=== PATIENT | male | born 1955 | race Caucasian/White ===

== ENCOUNTER 2017-06-29 14:31 | Emergency (ER) | payer MEDICARE ==
[2017-06-29 15:02] VITALS: BP 110/71
[2017-06-29] MEDS ORDERED: HYDROcodone/ACETAMIN 5-325 MG* 1 TAB PO ONE (15:31)
--- NOTE | 2017-06-29 15:57 | RAD ---
INDICATION: Right shoulder injury. TECHNIQUE: 4 views of the right shoulder were obtained. FINDINGS: The bones are in normal alignment. No fracture is seen. 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 IMPRESSION: NO EVIDENCE OF FRACTURE.
--- NOTE | 2017-06-29 15:59 | RAD ---
Indication: LEFT ankle and foot pain post fall from ladder. Comparison: No relevant prior exams available on the [facility] PACS for comparison. Technique: AP, lateral, and oblique views LEFT foot. AP, lateral, and mortise views LEFT ankle. Report: Grossly nondisplaced avulsion fracture with intra-articular extension at the tuberosity of the base of the fifth metatarsal. Tiny ossific fragment visualized between the talus and lateral malleolus on the AP view may reflect traumatic anterior talofibular ligament avulsion. Normal articular alignment throughout. Severe soft tissue swelling over the anterior lateral aspects of the ankle. IMPRESSION: 1. Grossly nondisplaced avulsion fracture at the tuberosity of the base of the fifth metatarsal. 2. Tiny ossific fragment visualized between the talus and lateral malleolus on the AP view may reflect traumatic anterior talofibular ligament avulsion. The ankle mortise remains congruent.
--- NOTE | 2017-06-29 16:00 | RAD ---
Indication: LEFT ankle and foot pain post fall from ladder. Comparison: No relevant prior exams available on the [facility] PACS for comparison. Technique: AP, lateral, and oblique views LEFT foot. AP, lateral, and mortise views LEFT ankle. Report: Grossly nondisplaced avulsion fracture with intra-articular extension at the tuberosity of the base of the fifth metatarsal. Tiny ossific fragment visualized between the talus and lateral malleolus on the AP view may reflect traumatic anterior talofibular ligament avulsion. Normal articular alignment throughout. Severe soft tissue swelling over the anterior lateral aspects of the ankle. IMPRESSION: 1. Grossly nondisplaced avulsion fracture at the tuberosity of the base of the fifth metatarsal. 2. Tiny ossific fragment visualized between the talus and lateral malleolus on the AP view may reflect traumatic anterior talofibular ligament avulsion. The ankle mortise remains congruent.
--- NOTE | 2017-06-29 16:16 | UC ---
Lower Extremity/Ankle HPI - HPI Summary HPI Summary: slid of the roof of his shed landing on his left foot falling on to right shoulder - History of Current Complaint Chief Complaint: UCLowerExtremity Stated Complaint: ANKLE INJURY Time Seen by Provider: 06/29/17 15:14 Hx Obtained From: Patient Onset/Duration: Sudden Onset, Still Present Severity Initially: Moderate Severity Currently: Moderate Pain Intensity: 7 Pain Scale Used: 0-10 Numeric Aggravating Factor(s): Standing, Ambulation Alleviating Factor(s): Rest, Elevation Able to Bear Weight: No - Allergies/Home Medications Allergies/Adverse Reactions: Allergies Allergy/AdvReac Type Severity Reaction Status Date / Time No Known Allergies Allergy Verified 06/29/17 15:02 PMH/Surg Hx/FS Hx/Imm Hx Previously Healthy: No Endocrine History: Dyslipidemia Cardiovascular History: Cardiac Disease - Surgical History Surgical History: Yes Surgery Procedure, Year, and Place: CARDIAC BYPASS MAY 2003 - BYPASSES & REPAIR OF MITRAL VALVE; TONSILS 1964 - Family History Known Family History: Positive: None - Social History Occupation: Disabled Lives: With Family Alcohol Use: Occasionally Substance Use Type: Marijuana Substance Use Comment - Amount & Last Used: 07/23/14 Smoking Status (MU): Former Smoker Review of Systems Constitutional: Negative Skin: Negative Eyes: Negative ENT: Negative Respiratory: Negative Cardiovascular: Negative Gastrointestinal: Negative Genitourinary: Negative Motor: Negative Neurovascular: Negative Musculoskeletal: Negative, Arthralgia - left ankle and left 5th MT, Decreased ROM - left ankle, Edema Neurological: Negative Psychological: Negative Is Patient Immunocompromised?: No All Other Systems Reviewed And Are Negative: Yes Physical Exam Triage Information Reviewed: Yes Appearance: Well-Appearing, Well-Nourished, Pain Distress - mild Vital Signs: Initial Vital Signs Temp 99.6 F 06/29/17 14:58 Pulse 79 06/29/17 14:58 Resp 18 06/29/17 14:58 BP 110/71 06/29/17 14:58 Pulse Ox 99 06/29/17 14:58 Vital Signs Reviewed: Yes Eye Exam: Normal Eyes: Positive: Conjunctiva Clear ENT Exam: Normal ENT: Positive: Normal ENT inspection, Hearing grossly normal, TMs normal. Negative: Nasal congestion, Nasal drainage, Trismus, Muffled/hoarse voice Dental Exam: Normal Neck exam: Normal Neck: Positive: Supple, Nontender, No Lymphadenopathy Respiratory Exam: Normal Respiratory: Positive: Chest non-tender, No respiratory distress, No accessory muscle use Cardiovascular Exam: Normal Cardiovascular: Positive: RRR, Pulses Normal, Brisk Capillary Refill Musculoskeletal Exam: Other Musculoskeletal: Positive: Strength Limited @ - left ankle, ROM Limited @ - ankle, Edema @ - left lateral ankle and foot, Other: - n/m/c intact distally in left foot Neurological Exam: Normal Neurological: Positive: Alert, Muscle Tone Normal Psychological Exam: Normal Skin Exam: Normal Diagnostics - Radiology No standard instances Xray Interpretation: Positive (See Comments) - 1. non displaced proximal 5th mT fracture 2. Left lateral ankle avulsion fracture 3.no evidence of fraxcture right shoulder Radiology Interpretation Completed By: ED Physician, Radiologist Lower Extremity Course/Dx - Course Course Of Treatment: non weight beaing, pain med, rice, posterior splint follow with ortho Sunday - Differential Dx/Diagnosis Differential Diagnosis/HQI/PQRI: Contusion, Dislocation, Fracture (Closed), Sprain Provider Diagnoses: left non displaced proximal 5th MT fracture, avulsion fx left lateral ankle, right shoulder contusion Discharge - Discharge Plan Condition: Stable Disposition: HOME Prescriptions: Ibuprofen TAB* [Motrin TAB* 600 MG] 600 mg PO Q6H PRN #40 tab PRN Reason: pain oxyCODONE/Acetamin 5/325 MG* [Percocet 5/325 TAB*] 1 tab PO Q4H PRN #20 tab MDD 5 PRN Reason: pain Patient Education Materials: Crutch Instructions (ED), Foot Fracture in Adults (ED), RICE Therapy (ED), Avulsion Fracture (ED) Referrals: Antony Flood MD [Medical Doctor] - 07/02/17 Marco Antonio Chavez MD [Primary Care Provider] - Additional Instructions: remain non weight bearing until evaluated by orthopedic MD
== END 2017-06-29 17:10 | disposition home or self-care (01) ==
LOC: UCEAST 14:31
DX: S92.355A Nondisplaced fracture of fifth metatarsal bone, left foot, initial encounter for closed fracture (principal); S82.892A Other fracture of left lower leg, initial encounter for closed fracture; S40.011A Contusion of right shoulder, initial encounter; Z87.891 Personal history of nicotine dependence; W20.8XXA Other cause of strike by thrown, projected or falling object, initial encounter; Y92.9 Unspecified place or not applicable; E78.5 Hyperlipidemia, unspecified
CPT/HCPCS: 99213; G0463

== ENCOUNTER → 2018-11-08 12:20 | Emergency (ER) | payer MEDICARE ==
[~2018-11-08 12:20] MED LIST: Ondansetron ODT TAB* 4 MG SL ONE
--- OUTSIDE RECORDS SUMMARY | 2018-11-08 12:43 | XMS REPORT | Continuity of Care Document ---
:1955 External Reference #:[id number] Author Name JackjvJumana Leah Care Team Providers Name Role Phone Marco Antonio Chavez III, MD Primary Care Physician Unavailable Payers Type Date Identification Numbers Payment Provider Subscriber Expires: 2014 Policy Number: [id number] Medicare Jamarcus Miguel PayID: [id number] [address] [place] [address] Effective: 2014 Policy Number: [id number] [facility] Jamarcus Miguel Expires: 2014 PayID: [id number] [address] [place] [address] Effective: 2013 Policy Number: [employer] Jamarcus Miguel [id number] [employer] Expires: 2014 PayID: [id number] [address] [place] [address] Effective: 2011 Policy Number: [id number] [facility] Ppkiesha Miguel Expires: 2013 Group Number: [id number] PO Box Group Name: [place] [address] PayID: [id number] Policy Number: [id number] Medicare Blue o Jamarcus Miguel Group Number: [id number] [address] PayID: [id number] [address] [address] Advance Directives Description No Information Available Problems Date Description Provider Status Onset: 07/26/2011 Restrictive cardiomyopathy secondary Jacque Clemons to cornelius Castillo Onset: 07/26/2011 Coronary arteriosclerosis Jacque Clemons M.D. Onset: 07/26/2011 Aortocoronary Bypass Postsurgical Jacque Clemons M.D. Onset: 07/26/2011 Hyperlipidemia Jacque Clemons M.D. Onset: 07/26/2011 Benign essential hypertension Jacque Clemons M.D. Onset: 07/26/2011 Amnesia Keith Curry M.D. Active Onset: 07/26/2011 Diplopia Keith Curry M.D. Active Onset: 07/26/2011 Gallbladder calculus with acute Keith Curry M.D. Active cholecystitis and no obstruction Onset: 08/08/2011 Supraventricular premature beats Jacque Clemons M.D. Onset: 08/08/2011 Premature beats Jacque Clemons M.D. Onset: 08/21/2011 Disorder of lumbar disc Keith Curry M.D. Active Onset: 10/03/2011 Obstructive sleep apnea syndrome Keith Curry M.D. Active Onset: 02/09/2012 Electrocardiogram abnormal Jacque Clemons M.D. Onset: 02/21/2012 Chronic ischemic heart disease Keith Curry M.D. Active Onset: 02/21/2012 Cervical disc disorder Keith Curry M.D. Active Onset: 10/23/2012 Mitral valve disorder Jacque Clemons M.D. Onset: 04/08/2015 Low back pain Marco Antonio Chavez M.D. Active Onset: 05/20/2015 Brachial plexus disorder Hammad Avila M.D. Active Onset: 07/22/2015 Essential hypertension Jacque Clemons M.D. Onset: 07/22/2015 History of coronary artery bypass Jacque Clemons grafting Anna Onset: 10/11/2016 Pure hypercholesterolemia Marco Antonio Chavez M.D. Active Family History Date Family Member(s) Problem(s) Comments General Coronary Artery Disease (CAD) Father due to Cancer, Colon () Father due to Cancer, Prostate () Father due to Diabetes () Father due to A-Fibrillation () Mother due to OR () - mid 70's and 60's Mother due to cabg x3 () Mother due to hyperlipidemia () Mother due to Cancer, Breast () Mother due to thyroid disease () First Son Cardiomyopathy First Son pacemaker First Son Ataxia First Daughter Unknown Siblings None Paternal Grandfather due to Cancer () Maternal Grandfather due to OR () - age 80's Maternal Grandmother due to OR () - mid 70's Social History Type Date Description Comments Sex Unknown Marital Status Lives With Spouse Lives With Son Lives With Daughter 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 Quit age Unknown 2 Packs Daily 42; began age 15 Smoking Status Reviewed: 10/24/18 Former Cigarette Smoker x 28 yrs. Quit age 2 Packs Daily 42; began age 15 ETOH Use Currently consumes alcohol ETOH Use Occasionally consumes alcohol Tobacco Use Start: Unknown End: Patient is a former Unknown smoker Recreational Drug Use Denies Drug Use Exercise Type/Frequency walks 2-3 times a week Allergies, Adverse Reactions, Alerts Description No Known Drug Allergies Medications Medication Date Status Form Strength Qnty SIG Indications Ordering Provider Meloxicam 06/20/ Active Tablets 15mg 30tab 1 by M54.5 Marco Antonio Nevarez 2016 s mouth Kathy, every day M.D. as needed Glucosamine 10/11/ Active Capsules 1500Com 30cap 2 by Marco Antonio Nevarez Chondroitin 1500 2016 s mouth Kathy, Complex every day M.D. Atorvastatin 07/07/ Active Tablets 40mg 90tab take 1 E78.4 Yontaabigail Calcium 2013 s tablet by S. mouth at Bernice granados M.D. Lisinopril / Active Tablets 5mg 90tab 1 by Qutaybeh 0000 s mouth S. every day Anna Queen Aspir-81 / Active Tablets DR 81mg 100ta 1 po qd Unknown 0000 bs Atenolol / Active Tablets 25mg 90tab 1 by Qutaybeh 0000 s mouth S. every day Anna Queen Vitamin B-12 / Active Tablets 500mcg 1 by Unknown 0000 mouth every day Vitamin D3 / Active Tablets 400Unit take one Unknown 0000 tablets by mouth every day Zofran 02/02/ Hx Tablets 4mg 9tabs take 1 A09 Sony 2017 - tablet by [place], 06/17/ mouth [employer] P[employer] HELPER 2017 every 8 hours three times daily as needed for nausea Duloxetine HCL 04/10/ Hx Caps 30mg 30cap take 1 M54.5 Marco Antonio Nevarez 2016 - Part s capsule Kathy, 10/11/ by mouth M.DRomel 2016 every morning for 1 week, then 2 tabs daily Hydrocodone/Aceta 07/07/ Hx 722.93 Marco Antonio yanez [phone] - Kathy, MG 07/07/ M.DRomel 2013 Hydrocodone-Aceta 07/07/ Hx Tablets 7.5-325mg 60tab 1 by 722.93 Marco Antonio yanez 2013 - mouth up Kathy, 04/08/ to 3 M.D. 2014 times a day as needed Cyclobenzaprine 07/31/ Hx Tablets 10mg 60tab one by Marco Antonio GARCIA 2011 - mouth Kathy, 04/09/ three M.D. 2016 times a day as needed spasm Pryidoxin 07/31/ Hx Keith Curry 09/02/ , Anna 2011 Medrol Dosepak 07/17/ Hx Tablets 4mg 1tabs as 722.93 Keith 2011 - directed Antoinette 07/31/ Anna 2011 Hydrocodone/Aceta 07/17/ Hx Tablets 7.5-325mg 45tab 1tab q 8 722.93 Keith yanez 2011 - h prn Antoinette , Anna 2013 supply Flexeril 05/28/ Hx Tablets 10mg 42tab 1 po bid 722.93 Keith 2011 docn Jenniferika 06/18/ Anna 2011 Hydrocodone/Aceta 05/28/ Hx Tablets 5-325mg 42tab 1 tab q 722.93 Keith yanez 2011 8h prn Jenniferikara 07/17/ , Anna 2011 Hydrocodone/Aceta 05/28/ Hx Tablets 7.5-325mg 45tab 1tab q 8 722.93 Keith yanez 2011 - s h prn Jenniferikara 07/17/ , Anna 2011 Hydrocodone/Aceta 05/28/ Hx Tablets 7.5-325mg 45tab 1tab q 8 722.93 Keith yanez 2011 - s h prn Antoinette 07/17/ Anna 2011 Hydrocodone/Aceta 08/21/ Hx Tablets 7.5-325mg 42tab 2 tab 722.93 Keith yanez 2010 - s ever 8hrs Monicara 02/08/ docn Anna 2011 Soma 08/21/ Hx Tablets 350mg 21tab 1 po tid 722.93 Keith 2010 - Pachikara 02/08/ Anna 2011 Bystolic 08/08/ Hx Tablets 2.5mg 90tab 0nce Keith 2010 - daily Antoinette 07/07/ Anna 2013 Lipitor 07/26/ Hx Tablets 40mg 90tab 1 po hs 272.4 Keith 2010 - Antoinette 07/07/ Anna 2013 Lipitor / Hx Tablets 80mg 45tab 1/2 tab Keith - s hs [facility] 07/26/ Anna 2010 Toprol XL / Hx Tablets ER 25mg 90tab 1 po qd [place] 0000 - 24HR s Antoinette 08/08/ Anna 2010 Vitamin B / Hx Capsules Unsure po qd Unknown Complex-C 0000 - 2011 Cyclobenzaprine / Hx Tablets 60tab one po Unknown HCL 0000 - s tid prn 2011 Oxycodone HCL / Hx Capsules 5mg does not Unknown 0000 - take d/t 06/17/ $50 copay 2017 at pain [facility] tabs by mouth every 4-6 hours as needed pain Immunizations CPT Code Status Date Vaccine Lot # [id number] Given 10/24/2018 Influenza Virus Vaccine, Quadrivalent, Split, [id number] Preservative Free [id number] Given 10/11/2016 Influ Virus Vaccine, Quadrivalent, Split Virus, Im [id number] Fluzone not PF [id number] Given 07/09/2012 Fluzone Vaccine [id number] Given 07/26/2011 Pneumonia Vaccine [id number] Given 07/26/2011 Influenza Virus 3Yrs & Over Vital Signs Date Vital Result Comment 10/24/2018 3:36pm Height 68 inches 5'8" Weight 168.00 lb Heart Rate 73 /min BP Systolic Sitting 100 mmHg BP Diastolic Sitting 68 mmHg O2 % BldC Oximetry 97 % BMI (Body Mass Index) 25.5 kg/m2 04/23/2018 2:16pm Height 68 inches 5'8" Weight 176.00 lb Heart Rate 76 /min BP Systolic Sitting 118 mmHg Rue reg cuff BP Diastolic Sitting 72 mmHg Rue reg cuff BP Systolic Standing 118 mmHg Rue BP Diastolic Standing 70 mmHg Rue Respiratory Rate 14 /min BMI (Body Mass Index) 26.8 kg/m2 Ejection Fraction 40-45% 02/11/18 01/21/2018 11:05am Height 68 inches 5'8" Weight 177.00 lb w/shoes Heart Rate 74 /min BP Systolic Sitting 120 mmHg L/A Reg Cuff BP Diastolic Sitting 74 mmHg L/A Reg Cuff BMI (Body Mass Index) 26.9 kg/m2 Ejection Fraction 50% Stress Test 10/30/17 09/10/2017 1:10pm Height 68 inches 5'8" Weight 163.00 lb Heart Rate 72 /min BP Systolic 110 mmHg BP Diastolic 68 mmHg Body Temperature 96.0 F Pain Level 2 BMI (Body Mass Index) 24.8 kg/m2 08/07/2017 11:04am Height 68 inches 5'8" Weight 163.00 lb Heart Rate 76 /min BP Systolic 108 mmHg BP Diastolic 62 mmHg Body Temperature 96.7 F Pain Level 3 BMI (Body Mass Index) 24.8 kg/m2 07/02/2017 9:27am Height 68 inches 5'8" Weight 163.00 lb Heart Rate 96 /min BP Systolic 108 mmHg BP Diastolic 77 mmHg Body Temperature 97.5 F BMI (Body Mass Index) 24.8 kg/m2 06/20/2017 9:25am Height 68 inches 5'8" Weight 165.12 lb Heart Rate 68 /min BP Systolic Sitting 116 mmHg BP Diastolic Sitting 78 mmHg Body Temperature 97.3 F O2 % BldC Oximetry 98 % BMI (Body Mass Index) 25.1 kg/m2 04/17/2017 9:46am Height 68 inches 5'8" Weight 170.00 lb with shoes Heart Rate 68 /min BP Systolic Sitting 110 mmHg Lue reg cuff BP Diastolic Sitting 80 mmHg Lue reg cuff Respiratory Rate 17 /min BMI (Body Mass Index) 25.8 kg/m2 Ejection Fraction 50-55% date 08/13/15 ECHO 02/02/2017 1:19pm Weight 171.00 lb Heart Rate 79 /min BP Systolic Sitting 110 mmHg BP Diastolic Sitting 60 mmHg Body Temperature 97.4 F O2 % BldC Oximetry 96 % 01/10/2017 12:15pm Weight 174.00 lb Heart Rate 70 /min BP Systolic 110 mmHg BP Diastolic 70 mmHg Body Temperature 97.4 F O2 % BldC Oximetry 98 % 10/11/2016 2:07pm Weight 164.00 lb Heart Rate 101 /min BP Systolic Sitting 110 mmHg BP Diastolic Sitting 74 mmHg Body Temperature 97.6 F O2 % BldC Oximetry 98 % 04/10/2016 3:57pm Height 67.5 inches 5'7.50" Weight 164.25 lb Heart Rate 87 /min BP Systolic 110 mmHg BP Diastolic 75 mmHg Body Temperature 97.3 F O2 % BldC Oximetry 97 % BMI (Body Mass Index) 25.3 kg/m2 10/11/2015 10:09am Height 67.75 inches 5'7.75" Weight 170.00 lb Heart Rate 73 /min BP Systolic 100 mmHg BP Diastolic 63 mmHg Body Temperature 95.5 F O2 % BldC Oximetry 98 % BMI (Body Mass Index) 26.0 kg/m2 08/25/2015 9:54am Height 67.75 inches 5'7.75" Weight 165.00 lb w/shoes Heart Rate 96 /min BP Systolic Sitting 110 mmHg LA reg cuff BP Diastolic Sitting 82 mmHg LA reg cuff BMI (Body Mass Index) 25.3 kg/m2 Ejection Fraction 50-55 echo 08/13/15 07/22/2015 3:22pm Height 67.75 inches 5'7.75" Weight 162.25 lb w/ shoes BP Systolic Sitting 100 mmHg LA, reg BP Diastolic Sitting 60 mmHg LA, reg BMI (Body Mass Index) 24.8 kg/m2 Ejection Fraction 50% 07/04/11 ECHO 05/20/2015 2:56pm Height 67.75 inches 5'7.75" Weight 155.00 lb Heart Rate 72 /min BP Systolic Sitting 112 mmHg BP Diastolic Sitting 76 mmHg Pain Level 6 back BMI (Body Mass Index) 23.7 kg/m2 04/08/2015 1:06pm Height 67.75 inches 5'7.75" Weight 159.00 lb Heart Rate 74 /min BP Systolic Sitting 124 mmHg BP Diastolic Sitting 80 mmHg Body Temperature 98.7 F O2 % BldC Oximetry 96 % BMI (Body Mass Index) 24.4 kg/m2 11/18/2014 3:17pm Weight 167.50 lb Heart Rate 98 /min BP Systolic Sitting 106 mmHg BP Diastolic Sitting 62 mmHg Pain Level 7 10/05/2014 11:49am Weight 170.00 lb Heart Rate 80 /min BP Systolic Sitting 102 mmHg BP Diastolic Sitting 72 mmHg Body Temperature 97.8 F 07/07/2014 2:52pm Height 68.5 inches 5'8.50" Weight 168.00 lb Heart Rate 98 /min BP Systolic Sitting 110 mmHg BP Diastolic Sitting 78 mmHg Body Temperature 98.3 F BMI (Body Mass Index) 25.2 kg/m2 04/08/2014 11:23am Weight 174.50 lb Heart Rate 84 /min BP Systolic Sitting 116 mmHg BP Diastolic Sitting 84 mmHg 12/24/2012 3:51pm Weight 164.00 lb Heart Rate 88 /min BP Systolic Sitting 110 mmHg BP Diastolic Sitting 72 mmHg 12/02/2012 10:37am Height 68.5 inches 5'8.50" Weight 172.00 lb Heart Rate 80 /min BP Systolic Sitting 106 mmHg BP Diastolic Sitting 70 mmHg BMI (Body Mass Index) 25.8 kg/m2 10/23/2012 8:46am Height 68.5 inches 5'8.50" Weight 170.00 lb Heart Rate 80 /min BP Systolic Sitting 110 mmHg BP Diastolic Sitting 62 mmHg Respiratory Rate 16 /min BMI (Body Mass Index) 25.5 kg/m2 10/21/2012 11:19am Height 68.5 inches 5'8.50" Weight 177.00 lb BMI (Body Mass Index) 26.5 kg/m2 09/02/2012 10:09am Height 68.5 inches 5'8.50" Weight 169.00 lb Heart Rate 76 /min BP Systolic Sitting 102 mmHg BP Diastolic Sitting 68 mmHg BMI (Body Mass Index) 25.3 kg/m2 07/31/2012 10:48am Height 68.5 inches 5'8.50" Weight 165.00 lb Heart Rate 88 /min BP Systolic Sitting 128 mmHg BP Diastolic Sitting 78 mmHg BMI (Body Mass Index) 24.7 kg/m2 07/17/2012 11:06am Height 68.5 inches 5'8.50" Weight 162.00 lb Heart Rate 88 /min BP Systolic Sitting 114 mmHg BP Diastolic Sitting 78 mmHg BMI (Body Mass Index) 24.3 kg/m2 07/03/2012 11:53am Height 68.5 inches 5'8.50" Weight 166.00 lb Heart Rate 68 /min BP Systolic Sitting 110 mmHg BP Diastolic Sitting 70 mmHg BMI (Body Mass Index) 24.9 kg/m2 06/18/2012 8:09am Height 68.5 inches 5'8.50" Weight 166.00 lb Heart Rate 78 /min BP Systolic Sitting 102 mmHg BP Diastolic Sitting 70 mmHg BMI (Body Mass Index) 24.9 kg/m2 06/04/2012 8:06am Height 68.5 inches 5'8.50" Weight 165.00 lb Heart Rate 86 /min BP Systolic Sitting 109 mmHg BP Diastolic Sitting 75 mmHg BMI (Body Mass Index) 24.7 kg/m2 05/28/2012 4:51pm Height 68.5 inches 5'8.50" Weight 165.00 lb Heart Rate 66 /min BP Systolic Sitting 102 mmHg BP Diastolic Sitting 60 mmHg BMI (Body Mass Index) 24.7 kg/m2 04/02/2012 4:42pm Height 68.5 inches 5'8.50" Weight 167.00 lb Heart Rate 84 /min BP Systolic Sitting 100 mmHg BP Diastolic Sitting 60 mmHg BMI (Body Mass Index) 25.0 kg/m2 02/21/2012 8:40am Height 68.5 inches 5'8.50" Weight 173.00 lb Heart Rate 100 /min BP Systolic Sitting 104 mmHg BP Diastolic Sitting 70 mmHg BMI (Body Mass Index) 25.9 kg/m2 02/09/2012 9:19am Height 68.5 inches 5'8.50" Weight 173.00 lb Heart Rate 76 /min BP Systolic 126 mmHg BP Diastolic 68 mmHg BMI (Body Mass Index) 25.9 kg/m2 08/21/2011 4:36pm Height 68.5 inches 5'8.50" Weight 174.00 lb Heart Rate 80 /min BP Systolic Sitting 118 mmHg BP Diastolic Sitting 70 mmHg BMI (Body Mass Index) 26.1 kg/m2 08/08/2011 4:05pm Height 68.5 inches 5'8.50" Weight 175.00 lb Heart Rate 72 /min BP Systolic Sitting 112 mmHg BP Diastolic Sitting 68 mmHg BMI (Body Mass Index) 26.2 kg/m2 07/26/2011 8:07am Height 68.5 inches 5'8.50" Weight 175.00 lb Heart Rate 80 /min BP Systolic Sitting 120 mmHg BP Diastolic Sitting 76 mmHg BMI (Body Mass Index) 26.2 kg/m2 06/26/2011 10:27am Height 69 inches 5'9" Weight 176.75 lb Heart Rate 90 /min BP Systolic 110 mmHg BP Diastolic 70 mmHg BP Systolic Sitting 120 mmHg BP Diastolic Sitting 80 mmHg BP Systolic Standing 100 mmHg BP Diastolic Standing 70 mmHg Respiratory Rate 16 /min BMI (Body Mass Index) 26.1 kg/m2 Results Test Date Facility Test Result H/L Range Note Ua Routine 06/20/2017 [facility] Ua Specific [place] 1.020 Ua PH 5 Ua Color Dark Yellow Ua Appera Clear Ua WBC Trace Ua Protein Neg Ua Glucose Neg Ua Ketones Neg Ua Bilirubin Neg Ua Urobilinogen Neg Ua Nitrite Neg Ua Occult Blood Neg Urine Culture And 02/02/2017 [facility] Urine Culture SEE RESULT [address] [place] [address] [phone] Ua Routine 02/02/2017 [facility] Ua Specific 1.005 [place] Ua PH 5 Ua Color dark yellow Ua Appera clear Ua WBC trace Ua Protein neg Ua Glucose normal Ua Ketones neg Ua Bilirubin neg Ua Urobilinogen normal Ua Nitrite neg Ua Occult Blood trace Laboratory test 01/10/2017 [facility] Lyme Disease Negative N Negative [address] [place] [address] [phone] Lyme Western Blot 01/10/2017 [facility] Lyme Disease Negative N Negative [address] [address] [phone] Lyme Disease IgG Bands Present p41, kDa N Lyme Disease IgM Ab WB Negative N Negative Lyme Disease IgM Bands Present No bands detecte <SEE NOTE> kDa N 3 Lyme Disease Interpretation See Comment N 4 Tick-Borne Panel 01/10/2017 [facility] Babesia Negative N Negative PCR Blood [address] [address] [phone] Babesia ducani Negative N Negative Babesia divergens/Mo-1 Negative N Negative 5 Anaplasma phagocytophilum Negative N Negative Ehrlichia chaffeensis Negative N Negative Ehrlichia ewingii/canis Negative N Negative Ehrlichia muris-like Negative N Negative 6 B. miyamotoi PCR, B Negative N Negative 7 Laboratory test 01/10/2017 [facility] Erythrocyte Sed 29 mm/Hr High 0-[address] [place] [address] [phone] C Reactive Protein 2.42 mg/L N < 5.00 8 Connective Tissue 01/10/2017 [facility] Anti-Nuclear Antibody 0.8 U N [address] [place] [address] [phone] Cyclic Citrullinated Peptide <15.6 U N 10 Interpretation See Comment N 11 Lipid Profile 04/04/2016 [facility] Triglycerides 129 mg/dL N 12 (Trig/Chol/HDL) [address] [place] [address] [phone] Cholesterol 152 mg/dL N 13 HDL Cholesterol 30.9 mg/dL N 14 LDL Cholesterol 95 mg/dL N 15 Comp Metabolic Panel 04/04/2016 [facility] Sodium 138 mmol/L N 133-[address] [place] [address] [phone] Potassium 4.3 mmol/L N 3.5-5.0 Chloride 104 mmol/L N 101-111 Co2 Carbon Dioxide 31 mmol/L N 22-32 Anion Gap 3 mmol/L N 2-11 Glucose 98 mg/dL N 70-100 Blood Urea Nitrogen 12 mg/dL N 6-24 Creatinine 0.87 mg/dL N 0.67-1.17 BUN/Creatinine Ratio 13.8 N 8-20 Calcium 9.1 mg/dL N 8.6-10.3 Total Protein 6.8 g/dL N 6.4-8.9 Albumin 3.9 g/dL N 3.2-5.2 Globulin 2.9 g/dL N 2-4 Albumin/Globulin Ratio 1.3 N 1-3 Total Bilirubin 1.10 mg/dL High 0.2-1.0 Alkaline Phosphatase 100 U/L N 34-104 Alt 15 U/L N 7-52 Ast 15 U/L N 13-39 Egfr Non- 89.2 N >60 Egfr 114.7 N >60 16 Laboratory test 04/04/2016 [facility] PSA Diagnostic 6.967 High 0-4.000 [address] ng/[place] [address] [phone] Laboratory test 11/02/2015 [facility] Surgical SEE RESULT [address] [place] [address] [phone] Laboratory test 10/01/2015 [facility] PSA Diagnostic 7.255 High 0-4.0 [address] ng/[place] [address] [phone] Laboratory test 05/20/2015 [facility] Erythrocyte Sed 14 mm/Hr N 0-[address] [place] [address] [phone] C Reactive Protein 1.43 mg/L N < 5.00 20 Lyme Disease Serology Negative N Negative 21 TSH (Thyroid Stim Horm) 0.77 ?IU/mL N 0.34-5.60 PSA Screening 4.973 ng/mL High 0-4.000 22 CBC Auto Diff 05/20/2015 [facility] White Blood 6.0 10^3/uL N 4.8-10.[address] [place] [address] [phone] Red Blood Count 5.18 10^6/uL N 4.0-5.4 Hemoglobin 15.5 g/dL N 14.0-18.0 Hematocrit 47 % N 42-52 Mean Corpuscular Volume 91 fL N 80-94 Mean Corpuscular Hemoglobin 30 pg N 27-31 Mean Corpuscular HGB Conc 33 g/dL N 31-36 Red Cell Distribution Width 14 % N 10.5-15 Platelet Count 193 10^3/uL N 150-450 Mean Platelet Volume 8 um3 N 7.4-10.4 Abs Neutrophils 4.1 10^3/uL N 1.5-7.7 Abs Lymphocytes 1.4 10^3/uL N 1.0-4.8 Abs Monocytes 0.3 10^3/uL N 0-0.8 Abs Eosinophils 0.1 10^3/uL N 0-0.6 Abs Basophils 0.1 10^3/uL N 0-0.2 Abs Nucleated RBC 0 10^3/uL N Granulocyte % 68.8 % N 38-83 Lymphocyte % 23.4 % Low 25-47 Monocyte % 5.6 % N 1-9 Eosinophil % 1.1 % N 0-6 Basophil % 1.1 % N 0-2 Nucleated Red Blood Cells % 0.1 N Comp Metabolic Panel 05/20/2015 [facility] Sodium 138 mmol/L N 133-145 [address] [place] [address] [phone] Potassium 3.9 mmol/L N 3.5-5.0 Chloride 101 mmol/L N 101-111 Co2 Carbon Dioxide 31 mmol/L N 22-32 Anion Gap 6 mmol/L N 2-11 Glucose 100 mg/dL N 70-100 Blood Urea Nitrogen 13 mg/dL N 6-24 Creatinine 0.92 mg/dL N 0.67-1.17 BUN/Creatinine Ratio 14.1 N 8-20 Calcium 9.1 mg/dL N 8.6-10.3 Total Protein 6.9 g/dL N 6.4-8.9 Albumin 4.2 g/dL N 3.2-5.2 Globulin 2.7 g/dL N 2-4 Albumin/Globulin Ratio 1.6 N 1-3 Total Bilirubin 1.20 mg/dL High 0.2-1.0 Alkaline Phosphatase 89 U/L N 34-104 Alt 17 U/L N 7-52 Ast 18 U/L N 13-39 Egfr Non- 83.9 N >60 Egfr 107.9 N >60 23 Lipid Profile 10/14/2014 [facility] Triglycerides 90 mg/dL N 24, 25 (Trig/Chol/HDL) [address] [place] [address] [phone] Cholesterol 178 mg/dL N 26 HDL Cholesterol 40.7 mg/dL N 27 LDL Cholesterol 119 mg/dL N 28 Laboratory 10/14/2014 [facility] Hepatitis C Nonreactive N Nonreactive 29 test finding [address] [facility] [place] [address] [phone] Glucose 101 mg/dL High 70-100 30 Laboratory test finding 08/14/2014 [facility] Lipase 23 U/L N 11.0-82.0 [address] [place] [address] [phone] C Reactive Protein < 1.00 mg/L N < 5.00 31 Comp Metabolic Panel 08/14/2014 [facility] Sodium 134 mmol/L N 133-145 [address] [place] [address] [phone] Potassium 3.7 mmol/L N 3.5-5.0 32 Chloride 101 mmol/L N 101-111 Co2 Carbon Dioxide 28 mmol/L N 22-32 Anion Gap 5 mmol/L N 2-11 Glucose 103 mg/dL High 70-100 Blood Urea Nitrogen 13 mg/dL N 6-24 Creatinine 0.80 mg/dL N 0.67-1.17 BUN/Creatinine Ratio 16.3 N 8-20 Calcium 8.9 mg/dL N 8.6-10.3 Total Protein 6.7 g/dL N 6.4-8.9 Albumin 3.9 g/dL N 3.2-5.2 Globulin 2.8 g/dL N 2-4 Albumin/Globulin Ratio 1.4 N 1-3 Total Bilirubin 1.30 mg/dL High 0.2-1.0 Alkaline Phosphatase 92 U/L N 34-104 Alt 24 U/L N 7-52 Ast 19 U/L N 13-39 Egfr Non- 98.9 N >60 Egfr 127.2 N >60 33 Laboratory test 08/14/2014 [facility] Lactic Acid 0.8 mmol/L N 0.5-2.[address] [place] [address] [phone] CBC Auto Diff 08/14/2014 [facility] White Blood 6.7 10^3/uL N 4.8-10.[address] [place] [address] [phone] Red Blood Count 4.92 10^6/uL N 4.0-5.4 Hemoglobin 14.5 g/dL N 14.0-18.0 Hematocrit 44 % N 42-52 Mean Corpuscular Volume 90 fL N 80-94 Mean Corpuscular Hemoglobin 29 pg N 27-31 Mean Corpuscular HGB Conc 33 g/dL N 31-36 Red Cell Distribution Width 13 % N 10.5-15 Platelet Count 184 10^3/uL N 150-450 Mean Platelet Volume 8 um3 N 7.4-10.4 Abs Neutrophils 4.4 10^3/uL N 1.5-7.7 Abs Lymphocytes 1.7 10^3/uL N 1.0-4.8 Abs Monocytes 0.5 10^3/uL N 0-0.8 Abs Eosinophils 0.1 10^3/uL N 0-0.6 Abs Basophils 0 10^3/uL N 0-0.2 Abs Nucleated RBC 0.01 10^3/uL N Granulocyte % 65.0 % N 38-83 Lymphocyte % 24.9 % Low 25-47 Monocyte % 7.9 % N 1-9 Eosinophil % 1.6 % N 0-6 Basophil % 0.6 % N 0-2 Nucleated Red Blood Cells % 0.1 N Urinalysis Profile 08/13/2014 [facility] Urine Color Yellow N [address] [place] [address] [phone] Urine Appearance Cloudy N Urine Specific [place] 1.012 N 1.010-1.030 Urine pH 7.0 N 5-9 Urine Urobilinogen Negative N Negative Urine Ketones Negative N Negative Urine Protein Negative N Negative Urine Leukocytes Negative N Negative Urine Blood Negative N Negative Urine Nitrite Negative N Negative Urine Bilirubin Negative N Negative Urine Glucose Negative N Negative Urine Culture And 08/13/2014 [facility] Urine Culture (SEE NOTE ) 34 [address] [place] [address] [phone] Lipid Profile 09/12/2012 [facility] Triglycerides 74 mg/dL 40 -20 (Trig/Chol/HDL) [address] [place] [address] [phone] Cholesterol 159 mg/dL Less than 200 HDL Cholesterol 37 mg/dL Low 40-60 35 Cholesterol/HDL Ratio 4.3 Average 1-4.44 LDL Cholesterol 107.2 mg/dL High Less Than 100 36 Comp Metabolic Panel 09/12/2012 [facility] Sodium 142 mmol/L 133-145 [address] [place] [address] [phone] Potassium 4.4 mmol/L 3.5-5.0 Chloride 107 mmol/L 101-111 Co2 Carbon Dioxide 29.0 mmol/L 22-32 Anion Gap 6.0 mmol/L 2-11 Glucose 89 mg/dL 70-100 Blood Urea Nitrogen 14 mg/dL 6-24 Creatinine 0.90 mg/dL 0.50-1.40 BUN/Creatinine Ratio 15.6 8-20 Calcium 9.1 mg/dL 8.1-9.9 Total Protein 6.6 g/dL 6.2-8.1 Albumin 3.8 g/dL 3.6-5.4 Globulin 2.8 g/dL 2-4 Albumin/Globulin Ratio 1.4 1-3 Total Bilirubin 1.2 mg/dL 0.4-1.5 Alkaline Phosphatase 86 U/L 30-110 Alt 23 U/L 14-54 Ast 21 U/L 12-42 Egfr Non- 87.0 >60 Egfr 111.9 >60 37 Comp Metabolic Panel 03/18/2012 [facility] Sodium 138 mmol/L 135-[address] [place] [address] [phone] Potassium 4.5 mmol/L 3.5-5.0 Chloride 106 mmol/L 101-111 Co2 (Carbon Dioxide) 29.0 mmol/L 22-32 Anion Gap 3.0 mmol/L 2-11 38 Glucose 103 mg/dL High 70-100 BUN 12 mg/dL 6-24 Creatinine 0.8 mg/dL 0.50-1.40 One Over Creatinine 1.25 BUN/Creatinine Ratio 15.0 8-20 Calcium 9.1 mg/dL 8.1-9.9 Total Protein 6.1 GM/DL Low 6.2-8.1 Albumin 3.9 GM/DL 3.6-5.4 Globulin 2.2 GM/DL 2-4 Albumin/Globulin Ratio 1.8 1-3 Bilirubin Total 1.4 mg/dL 0.4-1.5 39 Alkaline Phosphatase 84 U/L 39-117 Alt (SGPT) 22 U/L 17-63 Ast (Sgot) 24 U/L 12-42 eGFR Non- 99.6 > 60 eGFR 128.1 > 60 40 Lipid Profile 03/18/2012 [facility] Triglyceride 84 mg/dL 40- 200 (Trig/Chol/HDL) [address] [place] [address] [phone] Cholesterol 154 mg/dL Less Than 200 41 High Density Lipoprotein 37 mg/dL Low 40-60 42 Cholesterol/HDL Ratio 4.16 AVERAGE 1-4.97 Low Density Lipoprotein 100 mg/dL Less Than 100 43 Laboratory test 03/18/2012 [facility] PSA 2.85 NG/ML 0-4 [address] [place] [address] [phone] Laboratory test 12/27/2011 [facility] Thyroid <1.0 <=1.3 [address] Stimulating Igg [place], [place] [id number] [phone] Laboratory test 11/15/2011 [facility] Lyme Disease Negative Negative 46 finding 101 [facility] [place] [address] [phone] Thyroglobulin AB Screen <20 IU/mL <116 47 Vitamin B12 457 pg/mL 180-914 Folic Acid > 25.6 NG/ML See Below 48 Thyroxine Free 0.81 ng/dL 0.61-1.24 TSH 0.70 MIU/ML 0.34-5.60 C Reactive Protein < 0.5 mg/dL Less Than 0.5 Thyroperoxidase Antibody 0.4 IU/mL Less Than 9.0 Syphilis 11/15/2011 [facility] Syphilis IgG NON-REACTIVE Nonreactive 49 Screen [address] [place] [address] [phone] RPR TNP Nonreactive Pediatric/Maternal NO Liver Function 06/28/2011 [facility] Bilirubin Direct 0.1 mg/dL 0.1-0.5 Panel [address] [place] [address] [phone] Indirect Bilirubin 1.1 mg/dL High 0.3-1.0 50 Comp Metabolic Panel 06/28/2011 [facility] Sodium 139 mmol/L 135-145 [address] [place] [address] [phone] Potassium 4.4 mmol/L 3.5-5.0 Chloride 103 mmol/L 101-111 Co2 (Carbon Dioxide) 29.0 mmol/L 22-32 Anion Gap 7.0 mmol/L 2-11 51 Glucose 99 mg/dL 70-100 BUN 16 mg/dL 6-24 Creatinine 0.9 mg/dL 0.50-1.40 One Over Creatinine 1.11 BUN/Creatinine Ratio 17.8 8-20 Calcium 9.0 mg/dL 8.1-9.9 Total Protein 6.9 GM/DL 6.2-8.1 Albumin 3.8 GM/DL 3.6-5.4 Globulin 3.1 GM/DL 2-4 Albumin/Globulin Ratio 1.2 1-3 Bilirubin Total 1.2 mg/dL 0.4-1.5 52 Alkaline Phosphatase 100 U/L 39-117 Alt (SGPT) 24 U/L 17-63 Ast (Sgot) 26 U/L 12-42 eGFR Non- 87.3 > 60 eGFR 112.3 > 60 53 Lipid Profile 06/28/2011 [facility] Triglyceride 153 mg/dL 40 -200 (Trig/Chol/HDL) [address] [place] [address] [phone] Cholesterol 205 mg/dL High Less Than 200 54 High Density Lipoprotein 39 mg/dL Low 40-60 55 Cholesterol/HDL Ratio 5.26 AVERAGE High 1-4.97 Low Density Lipoprotein 135 mg/dL High Less Than 100 56 Laboratory test 06/28/2011 [facility] CPK (Creatine 126 U/L 0 -[address] Kinase) [place] [address] [phone] CBC Auto Diff 06/28/2011 [facility] White Blood 5.2 CUMM 4.8- 10.[address] [place] [address] [phone] Red Cell Count 4.95 CUMM 4.6-6.2 Hemoglobin 15.1 g/dL 14.0-18.0 Hematocrit 44 % 42-52 Mean Corpuscular Volume 89 um3 80-94 Mean Corpuscular Hemoglob 31 pg 27-31 Mean Corpuscular HGB Cone 34 g/dL 32-36 Redcell Distribution WDTH 13 % 10.5-15 Platelet Count 205 CUMM 150-450 Mean Platelet Volume 9.0 um3 7.4-10.4 Gran % 66.6 % 38-83 Lymph % 23.7 % Low 25-47 Mononuclear % 8.0 % 1-9 Eosinophil % 1.3 % 0-6 Basophil % 0.4 % 0-2 Abs Lymphs 1.2 1.0-4.8 Abs Mononuclear 0.4 0-0.8 Absolute Neutrophil Count 3.4 1.5-7.7 Abs Eosinophils 0.1 0-0.6 Abs Basophils 0 0-0.2 1 SEE RESULT BELOW Name: JAMARCUS MIGUEL : [address]: Sony Acevedo DRY PLASTERER HELPER Acct: [id number] Unit: [id number] AGE: 61 Location: [facility] Re02/02/17 SEX: M Status: REG REF SPEC: [id number] ALDEN: 02/02/[address]: Sony Acevedo [employer] PLASTERER HELPER REQ: [id number] RECD: 02/02/17 STATUS: COMP _ SOURCE: URINE SPDESC: ORDERED: Urine Culture COMMENTS: [id number] Urine Source: Random Procedure Result Reported Site Urine Culture Final 02/04/17- 0759 ML No Growth (<1,000 CFU/mL) * ML - MAIN LAB ([facility]) . END OF REPORT * ML=Testing performed at Main Lab DEPARTMENT OF PATHOLOGY, [address] [place] [address] Artie Piedra M.D. Director [facility] # [id number] 2 Serologic response to B. burgdorferi infection is not detected, but cannot rule out early infection during which low or undetectable antibody levels to B. burgdorferi may be present. If clinically indicated, a new serum specimen should be submitted in 7-14 days. Test Performed by: [facility] - [address] [address] 3 No bands detected 4 Specific serologic response to B. burgdorferi infection is not detected, but cannot rule out early infection during which low or undetectable antibody levels to B. burgdorferi may be present. If clinically indicated, a new serum specimen should be submitted in 7-14 days. ADDITIONAL INFORMATION CDC criteria require >=5 bands for IgG or >=2 bands for IgM for the Immunoblot to be considered positive. Bands (e.g.,p41) may be detected in patients without Lyme disease, and patterns not meeting the CDC criteria should be interpreted with caution. Immunoblot should be ordered only on specimens that are positive or equivocal by a FDA-licensed Lyme disease antibody screening test (e.g., EIA). Test Performed by: [facility] - [address] [address] 5 ADDITIONAL INFORMATION This test was developed and its performance characteristics determined by [facility] in a manner consistent with CLIA requirements. This test has not been cleared or approved by the U.S. Food and Drug Administration. 6 ADDITIONAL INFORMATION This test was developed and its performance characteristics determined by [facility] in a manner consistent with CLIA requirements. This test has not been cleared or approved by the U.S. Food and Drug Administration. 7 ADDITIONAL INFORMATION This test was developed and its performance characteristics determined by [facility] in a manner consistent with CLIA requirements. This test has not been cleared or approved by the U.S. Food and Drug Administration. Test Performed by: [facility] - [address] [address] 8 Acute inflammation: >10.00 9 REFERENCE VALUE <=1.0 (Negative) 10 REFERENCE VALUE <20.0 (Negative) 11 Tests for antibodies to dsDNA and SAAD antigens are not performed automatically unless the PAULINA result is > or= 3.0 U. Studies performed at [facility] indicate that positive PAULINA results <3.0 U are rarely accompanied by positive second order tests. Test Performed by: [facility] - [address] [address] 12 Desirable <150 Borderline high 150-199 High 200-499 Very High >500 13 Desirable <200 Borderline high 200-239 High >239 14 Low <40 Desirable: 40-60 High: >60 15 Desirable: <100 mg/dL Near Optimal: 100-129 mg/dL Borderline High: 130-159 mg/dL High: 160-189 mg/dL Very High: >189 mg/dL 16 Because ethnic data is not always readily available, this report includes an eGFR for both -Americans and non- Americans. The National Kidney Disease Education Program (NKDEP) does not endorse the use of the MDRD equation for patients that are not between the ages of 18 and 70, are , have extremes of body size, muscle mass, or nutritional status, or are non- or non-. According to the National Kidney Foundation, irrespective of diagnosis, the stage of the disease is based on the level of kidney function: Stage Description GFR(mL/min/1.73 m(2)) 1 Kidney damage with normal or decreased GFR 90 2 Kidney damage with mild decrease in GFR 60-89 3 Moderate decrease in GFR 30-59 4 Severe decrease in GFR 15-29 5 Kidney failure <15 (or dialysis) 17 Serum levels of PSA measured using the [employer] DXI Hybritech immunoassay should not be interpreted as absolute evidence of the presence or absence of disease. The PSA value should be used in conjunction with other pertinent clinical diagnostic procedures. The values obtained with different assay methods or kits cannot be used interchangeably. 18 SEE RESULT BELOW Name: JAMARCUS MIGUEL : [address]: Juaquin Guillen MD Acct: [id number] Unit: [id number] AGE: 60 Location: [facility] Re11/02/15 SEX: M Status: REG REF SPEC: [id number] ALDEN: 11/02/15- SUBM DR: Juaquin Guillen MD REQ: [id number] RECD: 11/02/15-1345 STATUS: INDY RICO DR: Marco Antonio Chavez III, MD _ ORDERED: LEVEL IV/4 FINAL DIAGNOSIS 1. Prostate, left apex, core biopsies: -- Benign prostate tissue with partial atrophy and chronic inflammation. -- No evidence of neoplasia identified. 2. Prostate, left base, core biopsies: -- Benign prostate tissue. -- No evidence of neoplasia identified. 3. Prostate, right apex, core biopsies: -- Benign prostate tissue. -- No evidence of neoplasia identified. 4. Prostate, right base, core biopsies: -- Benign prostate tissue. -- No evidence of neoplasia identified. PRE-OPERATIVE DIAGNOSIS PSA elevation and progression POST-OPERATIVE DIAGNOSIS PSA=7.26 GROSS DESCRIPTION 1. The specimen is received in formalin labeled, Left Prostate Lobe [place], and consists of three fragmented howard soft tissue cores ranging from 0.3 x 0.1 cm to 1.1 x 0.1 cm, which are submitted entirely in one cassette. CONTINUED ON NEXT PAGE * ML=Testing performed at Main Lab DEPARTMENT OF PATHOLOGY, [address] [place] [address] Artie Piedra M.D. Director [facility] # [id number] RUN DATE: 11/03/15 [facility] LAB LIVE PAGE 2 Patient: JAMARCUS MIGUEL [id number] (Continued) GROSS DESCRIPTION (Continued) GROSS DESCRIPTION (Continued) 2. The specimen is received in formalin labeled, Left Prostate Lobe Base, and consists of three howard soft tissue cores averaging 1.4 x 0.1 cm, which are submitted entirely in one cassette. 3. The specimen is received in formalin labeled, Right Prostate Lobe [place], and consists of three howard soft tissue cores averaging 1.2 x 0.1 cm, which are submitted entirely in one cassette. 4. The specimen is received in formalin labeled, Right Prostate Lobe Base, and consists of three fragmented howard soft tissue cores ranging from 0.2 x 0.1 cm to 1.4 x 0.1 cm, which are submitted entirely in one cassette. Signed (signature on file) Artie Piedra MD [id number] END OF REPORT * ML=Testing performed at [facility] Lab DEPARTMENT OF PATHOLOGY, [address] [place] [address] Artie Piedra M.D. Director [facility] # [id number] 19 Serum levels of PSA measured using the [employer] DXI Hybritech immunoassay should not be interpreted as absolute evidence of the presence or absence of disease. The PSA value should be used in conjunction with other pertinent clinical diagnostic procedures. The values obtained with different assay methods or kits cannot be used interchangeably. 20 Acute inflammation: >10.00 21 Serologic response to B. burgdorferi infection is not detected, but cannot rule out early infection during which low or undetectable antibody levels to B. burgdorferi may be present. If clinically indicated, a new serum specimen should be submitted in 7-14 days. Test Performed by: [place] [address] Garage Attendant: Isreal Tellez II, M.D., Ph.D. 22 Serum levels of PSA measured using the [employer] DXI Hybritech immunoassay should not be interpreted as absolute evidence of the presence or absence of disease. The PSA value should be used in conjunction with other pertinent clinical diagnostic procedures. The values obtained with different assay methods or kits cannot be used interchangeably. 23 Because ethnic data is not always readily available, this report includes an eGFR for both -Americans and non- Americans. The National Kidney Disease Education Program (NKDEP) does not endorse the use of the MDRD equation for patients that are not between the ages of 18 and 70, are , have extremes of body size, muscle mass, or nutritional status, or are non- or non-. According to the National Kidney Foundation, irrespective of diagnosis, the stage of the disease is based on the level of kidney function: Stage Description GFR(mL/min/1.73 m(2)) 1 Kidney damage with normal or decreased GFR 90 2 Kidney damage with mild decrease in GFR 60-89 3 Moderate decrease in GFR 30-59 4 Severe decrease in GFR 15-29 5 Kidney failure <15 (or dialysis) 24 FASTING 25 Desirable <150 Borderline high 150-199 High 200-499 Very High >500 26 Desirable <200 Borderline high 200-239 High >239 27 Low <40 Desirable: 40-60 High: >60 28 Desirable <100 Near Optimal 100-129 Borderline high 130-159 High 160-189 Very High >189 29 FASTING 30 FASTING 31 Acute inflammation: >10.00 32 Potassium reference range changed effective 07/26/14 33 Because ethnic data is not always readily available, this report includes an eGFR for both -Americans and non- Americans. The National Kidney Disease Education Program (NKDEP) does not endorse the use of the MDRD equation for patients that are not between the ages of 18 and 70, are , have extremes of body size, muscle mass, or nutritional status, or are non- or non-. According to the National Kidney Foundation, irrespective of diagnosis, the stage of the disease is based on the level of kidney function: Stage Description GFR(mL/min/1.73 m(2)) 1 Kidney damage with normal or decreased GFR 90 2 Kidney damage with mild decrease in GFR 60-89 3 Moderate decrease in GFR 30-59 4 Severe decrease in GFR 15-29 5 Kidney failure <15 (or dialysis) 34 RUN DATE: 08/15/14 [facility] LAB LIVE PAGE 1 RUN TIME: 1104 [address] [place], [place] [address] Specimen Inquiry Name: JAMARCUS MIGUEL : [address]: Frank Lopez DO Acct: [id number] Unit: [id number] AGE: 59 Location: ED Re08/13/14 SEX: M Status: DEP ER SPEC: [id number] ALDEN: 08/13/[address]: [facility] REQ: [id number] RECD: 08/13/14 STATUS: GLADYS RICO DR: Keith Lopez DO _ SOURCE: URINE SPDESC: ORDERED: Urine Culture Procedure Result Verified Site Urine Culture Final 08/15/14- 1107 ML Organism 1 NORMAL DARRYN Armstrong Count 1-10,000 (Few) CFU/ML END OF REPORT * ML=Testing performed at Main Lab DEPARTMENT OF PATHOLOGY, [address] [place] [address] Artie Piedra M.D. Director [facility] # [id number] 35 HDL Interpretation: Undesirable: High Risk: Less than 40 MG/DL Desirable: Low Risk: Greater than 60 MG/DL 36 LDL Interpretation: Low Risk Optimal Level: LDL Less than 100 MG/DL Near or Above Optimal: LDL 100-129 MG/DL Borderline High Risk: LDL 130-159 MG/DL High Risk: LDL 160-189 MG/DL Very High Risk: LDL Greater than 189 MG/DL 37 Because ethnic data is not always readily available, this report includes an eGFR for both -Americans and non- Americans. The National Kidney Disease Education Program (NKDEP) does not endorse the use of the MDRD equation for patients that are not between the ages of 18 and 70, are , have extremes of body size, muscle mass, or nutritional status, or are non- or non-. According to the National Kidney Foundation, irrespective of diagnosis, the stage of the disease is based on the level of kidney function: Stage Description GFR(mL/min/1.73 m(2)) 1 Kidney damage with normal or decreased GFR 90 2 Kidney damage with mild decrease in GFR 60-89 3 Moderate decrease in GFR 30-59 4 Severe decrease in GFR 15-29 5 Kidney failure <15 (or dialysis) 38 Anion gap measurement may be of limited value in the presence of any alkalosis, especially in a combined acid base disorder. . 39 A metabolite of Naproxen, O-desmethylnaproxen, has been shown to interfere with the J[employer]ik-Angelic method for measuring total bilirubin. Samples from patients who have taken Naproxen have shown spurious elevation in total bilirubin levels. 40 Because ethnic data is not always readily available, this report includes an eGFR for both -Americans and non- Americans. The National Kidney Disease Education Program (NKDEP) does not endorse the use of the MDRD equation for patients that are not between the ages of 18 and 70, are , have extremes of body size, muscle mass, or nutritional status, or are non- or non-. According to the National Kidney Foundation, irrespective of diagnosis, the stage of the disease is based on the level of kidney function: Stage Description GFR(mL/min/1.73 m(2)) 1 Kidney damage with normal or decreased GFR 90 2 Kidney damage with mild decrease in GFR 60-89 3 Moderate decrease in GFR 30-59 4 Severe decrease in GFR 15-29 5 Kidney failure <15 (or dialysis) 41 CHOLESTEROL INTERPRETATION: Desirable: Less than 200 MG/DL Borderline-High Risk: 200-239 MG/DL High-Risk: 240 MG/DL and over 42 HDL INTERPRETATION: Undesirable: High Risk: Less than 40 MG/DL Desirable: Low Risk: Greater than 60 MG/DL 43 LDL INTERPRETATION: Low Risk Optimal Level: LDL Less than 100 MG/DL Near or Above Optimal: LDL 100-129 MG/DL Borderline High Risk: LDL 130-159 MG/DL High Risk: LDL 160-189 MG/DL Very High Risk: LDL Greater than 189 MG/DL 44 * SERUM LEVELS OF PSA MEASURED USING THE [employer] ACCESS HYBRITECH IMMUNOASSAY SHOULD NOT BE INTERPRETED ABSOLUTE EVIDENCE OF THE PRESENCE OR ABSENCE OF DISEASE. THE PSA VALUE SHOULD BE USED IN CONJUNCTION WITH OTHER PERTINENT CLINICAL DIAGNOSTIC PROCEDURES. The values obtained with different assay methods or kits cannot be used interchangeably. 45 INFCE Result Units: TSI index Test Performed by: [facility] Dpt of Lab Med and Pathology [address] [place] [id number] Garage Attendant: Alpesh Garcia III, M.D. 46 Serologic response to B. burgdorferi infection is not detected, but cannot rule out early infection during which low or undetectable antibody levels to B. burgdorferi may be present. If clinically indicated, a new serum specimen should be submitted in 7-14 days. Test Performed by: [facility] Dpt of Lab Med and Pathology [address] [place], [place] [address] Garage Attendant: Alpesh Garcia III, M.D. 47 If thyroglobulin antibody measurement is performed to assess the reliability of the thyroglobulin assay for thyroid cancer patient follow-up, a thyroglobulin antibody result=/>22 IU/mL may result in falsely decreased thyroglobulin values. The thyroglobulin antibody testing method is an electrochemiluminescence assay manufactured by [employer] and performed on the Modular or Janis system. Values obtained from different assay methods or kits may be different and cannot be used interchangeably. Test Performed by: [facility] Dpt of Lab Med and Pathology [address] [place], [place] [address] Garage Attendant: Alpesh Garcia III, M.D. 48 Please note: New reference range, effective 09/14/11 NORMAL REFERENCE RANGE: GREATER THAN 4.1 NG/ML 49 Warning: A positive result is not useful for establishing a diagnosis of syphilis. In most situations, such a result may reflect a prior treated infection; a negative result can exclude a diagnosis of syphilis except for incubating or early primary disease. 50 Please note updated reference range, effective 04/14/10 51 Anion gap measurement may be of limited value in the presence of any alkalosis, especially in a combined acid base disorder. . 52 A metabolite of Naproxen, O-desmethylnaproxen, has been shown to interfere with the Jendrassik-Angelic method for measuring total bilirubin. Samples from patients who have taken Naproxen have shown spurious elevation in total bilirubin levels. 53 Because ethnic data is not always readily available, this report includes an eGFR for both -Americans and non- Americans. The National Kidney Disease Education Program (NKDEP) does not endorse the use of the MDRD equation for patients that are not between the ages of 18 and 70, are , have extremes of body size, muscle mass, or nutritional status, or are non- or non-. According to the National Kidney Foundation, irrespective of diagnosis, the stage of the disease is based on the level of kidney function: Stage Description GFR(mL/min/1.73 m(2)) 1 Kidney damage with normal or decreased GFR 90 2 Kidney damage with mild decrease in GFR 60-89 3 Moderate decrease in GFR 30-59 4 Severe decrease in GFR 15-29 5 Kidney failure <15 (or dialysis) 54 CHOLESTEROL INTERPRETATION: Desirable: Less than 200 MG/DL Borderline-High Risk: 200-239 MG/DL High-Risk: 240 MG/DL and over 55 HDL INTERPRETATION: Undesirable: High Risk: Less than 40 MG/DL Desirable: Low Risk: Greater than 60 MG/DL 56 LDL INTERPRETATION: Low Risk Optimal Level: LDL Less than 100 MG/DL Near or Above Optimal: LDL 100-129 MG/DL Borderline High Risk: LDL 130-159 MG/DL High Risk: LDL 160-189 MG/DL Very High Risk: LDL Greater than 189 MG/DL Procedures Date Code Description Status 02/11/2018 16606 ECHO Transthoracic, Real-Time 2D With Doppler And Completed Color Flow 02/11/2018 67154 ECHO Transthoracic, Real-Time 2D With Doppler And Completed Color Flow 02/08/2018 25252 Holter Monitor Review (24 hr) review & interp only Completed 02/07/2018 44009 ECG Monitor/Recording W/Visual Superimposition Completed Scanning 01/21/2018 69997 EKG Tracing & Interpretation Completed 10/30/2017 29350 ECHO Stress Test Incl Perf Contiuous ekg Monitoring Completed W/Phys Superv 07/02/2017 00478 FX Metatarsal Care Completed 05/16/2017 69744 ECHO Transthoracic, Real-Time 2D With Doppler And Completed Color Flow 04/17/2017 47830 EKG Tracing & Interpretation Completed 08/13/2015 10343 ECHO Transthoracic, Real-Time 2D With Doppler And Completed Color Flow 08/11/2015 49205 Holter Monitor Review (24 hr) review & interp only Completed 08/11/2015 26079 ECG Monitor/Recording W/Visual Superimposition Completed Scanning 08/10/2015 47276 ECG Monitor/Recording W/Visual Superimposition Completed Scanning 08/10/2015 25741 Holter Monitor Review (24 hr) review & interp only Completed 07/22/2015 87447 EKG Tracing & Interpretation Completed 05/13/2015 [id number] Colonoscopy Completed 10/23/2012 24239 EKG Tracing & Interpretation Completed 02/09/2012 77569 EKG Tracing & Interpretation Completed 08/08/2011 48153 EKG Tracing & Interpretation Completed 07/25/2011 [id number] Diabetic Retinal Eye Exam Completed 07/04/2011 76944 ECHO Stress Test Incl Perf Contiuous ekg Monitoring Completed W/Phys Superv 07/04/2011 22282 ECHO Transthoracic, Real-Time 2D With Doppler And Completed Color Flow 07/04/2011 43753 ECHO Transthoracic, Real-Time 2D With Doppler And Completed Color Flow 07/03/2011 54715 Holter Monitoring 24 HR New Completed 06/26/2011 41884 EKG Tracing & Interpretation Completed 09/24/2009 [id number] Colonoscopy Completed Encounters Type Date Location Provider Dx Diagnosis Office Visit 04/23/2018 [facility] Yontaybhank S. I42.9 Cardiomyopathy , 2:20p Of Ana Queen M.D. unspecified I25.10 [facility] [place] coronary artery w/o ang pctrs E78.4 Other hyperlipidemia Office Visit 01/21/2018 [place] Martha S. I42.9 Cardiomyopathy, 11:20a Cardiology Anna Queen unspecified E78.4 Other hyperlipidemia I25.10 [facility] heart disease [place] coronary artery w/o ang pctrs Office Visit 07/02/2017 [facility] F Galo, S92.352A Disp fx of fifth 9:00a Services Of MD nahomi perez C.M.A. left foot, init S93.492A Sprain of other ligament of left ankle, initial encounter W13.2xxA Fall from, out of or through roof, initial encounter Office Visit 06/20/2017 9:20a [facility] Internal Marco Antonio Nevarez M54.5 Low back pain Mason Chavez M.D. [facility] Office Visit 04/17/2017 10:00a [facility] Qutaybeh S. I10 Essential Bernice (primary) Anna hypertension G47.33 Obstructive sleep apnea (adult) (pediatric) I25.10 [facility] heart disease of [place] coronary artery w/o ang pctrs E78.4 Other hyperlipidemia I34.0 Nonrheumatic mitral (valve) insufficiency R06.02 Shortness of breath R94.31 Abnormal electrocardiogram [ECG] [EKG] Office Visit 02/02/2017 1:20p [facility] Internal Sony Gibraltarian, DRY PLASTERER HELPER M54.5 Low back pain Medicine - [address] K52.9 Noninfective gastroenteritis and colitis, unspecified Office Visit 01/10/2017 11:40a [facility] Internal Marco Antonio Nevarez M79.1 Myalgia Mason Chavez M.D. [place] Office Visit 10/11/2016 2:00p [facility] Internal Marco Antonio Nevarez I10 Essential ( primary) Mason Chavez M.D. hypertension [place] G47.33 Obstructive sleep apnea (adult) (pediatric) I25.10 Athscl heart disease of [place] coronary artery w/o ang pctrs E78.00 Pure hypercholesterolemia, unspecified M54.5 Low back pain Z23 Encounter for immunization Office Visit 10/11/2015 10:00a [facility] Internal Marco Antonio Nevarez I10 Essential ( primary) Mason Chavez M.D. hypertension [place] G47.33 Obstructive sleep apnea (adult) (pediatric) I25.10 Athscl heart disease of [place] coronary artery w/o ang pctrs E78.0 Pure hypercholesterolemia Office Visit 08/25/2015 10:00a [facility] Sofía Cardenas, I10 Essential (primary) [place] hypertension I25.810 Atherosclerosis of CABG w/o angina pectoris I34.0 Nonrheumatic mitral (valve) insufficiency I34.2 Nonrheumatic mitral (valve) stenosis M54.5 Low back pain I42.9 Cardiomyopathy, unspecified Office Visit 07/22/2015 3:40p [facility] Qutaybhank S. I10 Essential Anan Queen (primary) hypertension E78.4 Other hyperlipidemia I34.0 Nonrheumatic mitral (valve) insufficiency G47.33 Obstructive sleep apnea (adult) (pediatric) Z95.1 Presence of aortocoronary bypass graft R42 Dizziness and giddiness R06.02 Shortness of breath I25.810 Atherosclerosis of CABG w/o angina pectoris Office Visit 05/20/2015 3:00p Neurosurgery Hammad Gonsalez 353.0 [facility] Of Ana Avila M.D. Brachial Plexus 721.3 Spondylosis Lumbar W/O Myelopathy Office Visit 04/08/2015 1:00p [facility] Internal Marco Antonio Nevarez V70.0 Examination Mason Chavez M.D. General Medical [place] Routine AT [facility] 401.1 Hypertension Benign 272.4 Hyperlipidemia Other Unspec 414.01 Coronary Atherosclerosis [place] 327.23 Obstructive Sleep Apnea Adult & Pediatric 724.2 Lumbago 780.79 Malaise And Fatigue Other Office Visit 11/18/2014 3:00p [facility] Internal Medicine Marco Antonio Chavez, 724.2 Lumbago - Tete Castillo 401.1 Hypertension Benign 272.4 Hyperlipidemia Other Unspec 414.01 Coronary Atherosclerosis [place] Office Visit 10/05/2014 11:40a [facility] Internal Marco Antonio Nevarez 401.1 Hypertension Erik Chavez M.D. [place] 272.4 Hyperlipidemia Other Unspec 414.01 Coronary Atherosclerosis [place] 722.93 Disc Disorder Other & Unspec Lumbar Region 327.23 Obstructive Sleep Apnea Adult & Pediatric V76.51 Special Screening For Malignant Neoplasms Colon V73.99 Screening Examination Viral Disease Unspec V77.1 Screening Diabetes Mellitus Office Visit 07/07/2014 2:40p [facility] Selvin Nevarez 401.1 Hypertension Erik Chavez M.D. [place] 272.4 Hyperlipidemia Other Unspec 414.01 Coronary Atherosclerosis [place] 722.93 Disc Disorder Other & Unspec Lum[place] 722.91 Disc Disorder Other & Unspec Cervical Region Office Visit 04/08/2014 11:20a Neurosurgery Hammad Gonsalez 722.93 Disc Disorder Services Of [facility] BRUCE Avila M.D. Other & Unspec Max Lumbar Region 721.3 Spondylosis Lumbar W/O Myelopathy Office Visit 12/24/2012 [facility] Internal Keith 722.93 Disc Disorder Other 4:00p Mason Curry M.D. & Unspec Lumbar [place] Region Office Visit 12/02/2012 [facility] Selvin Parker 414.01 Coronary 10:00a Mason Curry M.D. Atherosclerosis [place] 401.1 Hypertension Benign 272.4 Hyperlipidemia Other Unspec 722.93 Disc Disorder Other & Unspec Lumbar [place] Office Visit 10/23/2012 Ghassan Thomas SRomel 401.1 Hypertension 9:00a Cardiology Anna Queen Benign 272.4 Hyperlipidemia Other Unspec 414.01 Coronary Atherosclerosis [place] V45.81 Aortocoronary Bypass Postsurgical Status 424.0 Mitral Valve Disorder Office Visit 10/21/2012 11:45a [facility] Internal Keith Curry 722.93 Disc Disorder Mason Arrington M.D. Other & Unspec [place] Lumbar Region Office Visit 09/02/2012 10:00a [facility] Internal Keith Curry 722.93 Disc Disorder Mason Arrington M.D. Other & Unspec [place] Lumbar Region 401.1 Hypertension Benign 272.4 Hyperlipidemia Other Unspec 414.01 Coronary Atherosclerosis [place] Office Visit 07/31/2012 10:40a [facility] Internal Keith 722.Michael Disc Disorder Mason Curry M.D. Other & Unspec [place] Lumbar Region Office Visit 07/25/2012 2:00p Neurosurgery Hammad Gonsalez 724.3 Sciatica Services Of Ana Avila M.D. Office Visit 07/17/2012 11:00a [facility] Internal Keith 722Ginger Disc Disorder Mason Curry M.D. Other & Unspec [place] Lumbar Region Office Visit 07/03/2012 11:40a [facility] Internal Keith 722Ginger Disc Disorder Mason Curry M.D. Other & Unspec [place] Lumbar Region Office Visit 06/18/2012 8:00a [facility] Internal Keith 722.Michael Disc Disorder Mason Curry M.D. Other & Unspec [place] Lumbar Region Office Visit 06/04/2012 8:00a [facility] Internal Keith 722.Michael Disc Disorder Mason Curry M.D. Other & Unspec [place] Lumbar Region Office Visit 05/28/2012 4:40p [facility] Internal Keith 722Ginger Disc Disorder Mason Curry M.D. Other & Unspec [place] Lumbar Region 401.1 Hypertension Benign 272.4 Hyperlipidemia Other Unspec Office Visit 04/02/2012 4:40p [facility] Internal Kay 272.4 Hyperlipidemia Other Mason Castañeda M.D. Unspec [place] 401.1 Hypertension Benign Office Visit 02/21/2012 8:20a [facility] Internal Keith 401.1 Hypertension Mason Curry M.D. Benign [place] 272.4 Hyperlipidemia Other Unspec 722.91 Disc Disorder Other & Unspec Cervical Region 722.93 Disc Disorder Other & Unspec [place] 717.5 Derangement Meniscus Not Elsewhere Classified V70.0 Examination General Medical Routine AT Health Care Facility V72.62 Laboratory Exam Ordered as Part Of Routine General Med Exam Office Visit 02/09/2012 Ghassan Thomas SRomel 414.01 Coronary 9:40a Cardiology Anna Queen Atherosclerosis [place] 401.1 Hypertension Benign 272.4 Hyperlipidemia Other Unspec 794.31 Electrocardiogram (ECG) (EKG) Abnormal Office Visit 08/21/2011 DO Not Use Artificial Glass Eye Maker [place] 722.93 Disc Disorder Other 4:40p AT Jeremy Curry M.D. & Unspec Lum[place] Office Visit 08/08/2011 [place] Qutaybeh S. 414.01 Coronary 4:15p Cardiology Anna Queen Atherosclerosis [place] 401.1 Hypertension Benign 272.4 Hyperlipidemia Other Unspec 427.61 Premature Beats Supraventricular 427.69 Premature Beats Other Office Visit 07/26/2011 DO Not Use Artificial Glass Eye Maker [place] 574.10 Calculus 8:00a AT Jeremy Curry M.D. Gallbladder W/ Other Cholecystitis W/O Obstruction 414.01 Coronary Atherosclerosis [place] 401.1 Hypertension Benign 272.4 Hyperlipidemia Other Unspec 780.93 Memory Loss 327.23 Obstructive Sleep Apnea Adult & Pediatric V72.62 Laboratory Exam Ordered as Part Of Routine General Med Exam v04.81 Need For Prophylactic Vaccination & Inoculation/Influenza v03.82 Streptococcus Pneumoniae Vaccination Spec Other Office 07/04/2011 [place] Qutaybeh S. 794.31 Electrocardiogram Visit 1:20p Solitario Queen M.D. (ECG) (EKG) Abnormal 425.9 Cardiomyopathy Secondary Unspecified 414.01 Coronary Atherosclerosis [place] V45.81 Aortocoronary Bypass Postsurgical Status 424.0 Mitral Valve Disorder 786.05 Shortness Of Breath 780.4 Dizziness & Giddiness 401.1 Hypertension Benign Office 06/26/2011 [place] Qutaybeh S. 794.31 Electrocardiogram Visit 10:20a Solitario Queen M.D. (ECG) (EKG) Abnormal 272.4 Hyperlipidemia Other Unspec 425.9 Cardiomyopathy Secondary Unspecified 414.01 Coronary Atherosclerosis [place] V45.81 Aortocoronary Bypass Postsurgical Status 424.0 Mitral Valve Disorder 401.1 Hypertension Benign 780.4 Dizziness & Giddiness Plan of Treatment 10/24/2018 - Marco Antonio Chavez M.D.M25.551 Pain in right hipG47.33 Obstructive sleep apnea (adult) (pediatric)Referral:[facility] [place], Sleep Disord,Diag/ SgoczdB94.83 Other [id number] Persistent mood [affective] disorder, unspecified
[2018-11-08 13:31] LABS: ABS Basophils 0 10^3/ul (0-0.2); ABS Eosinophils 0 10^3/ul (0-0.6); ABS Lymphocytes 0.7 10^3/ul (1.0-4.8); ABS Monocytes 0.4 10^3/ul (0-0.8); ABS Neutrophils 9.1 10^3/ul (1.5-7.7); ABS Nucleated RBC 0 10^3/ul; Eosinophil % 0.2 %; Hematocrit 45 % (42-52); Hemoglobin 15.2 g/dl (14.0-18.0); Lymphocyte % 6.7 %; Mean Corpuscular HGB Conc 34 g/dl (31-36); Mean Corpuscular Hemoglobin 30 pg (27-31); Mean Corpuscular Volume 89 fL (80-94); Mean Platelet Volume 8.3 fL (7.4-10.4); Nucleated Red Blood Cells % 0; Platelet Count 225 10^3/ul (150-450); Red Blood Count 5.03 10^6/ul (4.00-5.40); Red Cell Distribution Width 14 % (10.5-15); White Blood Count 10.2 10^3/ul (3.5-10.8)
[2018-11-08 13:47] LABS: Albumin 4.3 g/dL (3.2-5.2); Albumin/Globulin Ratio 1.4 (1-3); BUN/Creatinine Ratio 17.5 (8-20); Calcium 9.6 mg/dL (8.6-10.3); EGFR African American 88.3 (>60); EGFR Non-African American 72.9 (>60); Globulin 3.1 g/dL (2-4); Potassium 4.9 mmol/L (3.5-5.0); Total Bilirubin 1.7 mg/dL (0.2-1.0); Total Protein 7.4 g/dL (6.4-8.9)
--- NOTE | 2018-11-08 13:57 | ED ---
HPI Chest Pain - HPI Summary HPI Summary: Patient is a 63-year-old male with a history of bypass x 5 in 2003 presenting to the ED with nausea and vomiting times one episode yesterday and nausea vomiting times one episode today. He states he was working under his house and a small crawlspace when he became somewhat dizzy with nausea. He was able to come out from under the house in which he vomited. He states he felt weak and "off" for the rest of the day. But had no other abdominal pains, nausea, vomiting or other symptoms. He states the same thing happened today and he decided come to the ED. He denies any CP or SOB. He states when he had an KS 14 years ago this felt somewhat similar. At that time he states he felt weak, nauseous and was unable to stand. While he is feeling weak and nauseous on today's visit, he states he was able to continue to ambulate, eat and drink okay. Expanded Function Dental Assistant is Dr. Queen. Last visit was 6mos ago and stress test obtained. This was normal. Currently on baby aspirin, lisinopril, atorvastatin and atenolol. He has had no CP or SOB or other cardiac issues since his bypass in 2003. He denies weakness currently. Denies N/V/C/D, back pain, visual changes, neck pain or SALCIDO. at bedside. - History of Current Complaint Chief Complaint: EDChestPainROMI Time Seen by Provider: 11/08/18 12:46 Hx Obtained From: Patient Onset/Duration: Started Days Ago Timing: Constant Initial Severity: Mild Current Severity: Mild Pain Intensity: 0 Pain Scale Used: 0-10 Numeric Chest Pain Radiates: No Aggravating Factor(s): Nothing Alleviating Factor(s): Nothing Associated Signs and Symptoms: Positive: Nausea, Vomiting. Negative: Vision Changes, Anxiety, Headaches, Numbness - Risk Factors Pulmonary Embolism Risk Factors: Negative TAD Risk Factors: Negative - Allergy/Home Medications Allergies/Adverse Reactions: Allergies Allergy/AdvReac Type Severity Reaction Status Date / Time No Known Allergies Allergy Verified 11/08/18 12:41 PMH/Surg Hx/FS Hx/Imm Hx Previously Healthy: Yes Endocrine/Hematology History: Denies: Hx Diabetes Cardiovascular History: Reports: Hx Angioplasty, Hx Coronary Artery Disease, Hx Hypertension Denies: Hx Pacemaker/ICD History: Denies: Hx Renal Disease Musculoskeletal History: Reports: Hx Back Problems Sensory History: Denies: Hx Hearing Aid Psychiatric History: Denies: Hx Panic Disorder - Surgical History Surgery Procedure, Year, and Place: CARDIAC BYPASS MAY 2003 - BYPASSES & REPAIR OF MITRAL VALVE; TONSILS 1965 - Immunization History Hx Pertussis Vaccination: No Immunizations Up to Date: Yes Infectious Disease History: No Infectious Disease History: Denies: Traveled Outside the [place] in Last 30 Days - Family History Known Family History: Positive: None - Social History Occupation: Employed Part-time Lives: With Family Alcohol Use: Occasionally Hx Substance Use: Yes Substance Use Type: Reports: Marijuana Substance Use Comment - Amount & Last Used: 07/23/14 Smoking Status (MU): Former Smoker Review of Systems Constitutional: Negative Negative: Fever, Chills, Fatigue, Skin Diaphoresis Negative: Palpitations, Chest Pain Negative: Shortness Of Breath, Cough Positive: Vomiting, Nausea. Negative: Diarrhea Genitourinary: Negative Positive: no symptoms reported, see HPI Negative: Arthralgia, Myalgia Neurological: Negative All Other Systems Reviewed And Are Negative: Yes Physical Exam Triage Information Reviewed: Yes Vital Signs On Initial Exam: Initial Vitals Temp Pulse Resp BP Pulse Ox 97.8 F 68 16 118/68 97 11/08/18 12:24 11/08/18 12:24 11/08/18 12:24 11/08/18 12:24 11/08/18 12:24 Vital Signs Reviewed: Yes Appearance: Positive: Well-Appearing, Well-Nourished Skin: Positive: Warm, Skin Color Reflects Adequate Perfusion Head/Face: Positive: Normal Head/Face Inspection Eyes: Positive: EOMI, EMETERIO, Conjunctiva Clear Neck: Positive: Supple, Nontender, No Lymphadenopathy Respiratory/Lung Sounds: Positive: Clear to Auscultation, Breath Sounds Present Cardiovascular: Positive: RRR, Pulses are Symmetrical in both Upper and Lower Extremities Musculoskeletal: Positive: Normal, Strength/ROM Intact Neurological: Positive: Speech Normal Psychiatric: Positive: Normal, Affect/Mood Appropriate AVPU Assessment: Alert Diagnostics - Vital Signs Vital Signs Temp Pulse Resp BP Pulse Ox 11/08/18 12:24 97.8 F 68 16 118/68 97 - Laboratory Lab Results: Lab Results 11/08/18 11/08/18 11/08/18 Range/Units 13:13 13:13 13:13 WBC 10.2 (3.5-10.8) 10^3/ul RBC 5.03 (4.00-5.40) 10^6/ul Hgb 15.2 (14.0-18.0) g/dl Hct 45 (42-52) % MCV 89 (80-94) fL MCH 30 (27-31) pg MCHC 34 (31-36) g/dl RDW 14 (10.5-15) % Plt Count 225 (150-450) 10^3/ul MPV 8.3 (7.4-10.4) fL Neut % (Auto) 89.0 % Lymph % (Auto) 6.7 % Emanuel % (Auto) 3.9 % Eos % (Auto) 0.2 % Baso % (Auto) 0.2 % Absolute Neuts (auto) 9.1 H (1.5-7.7) 10^3/ul Absolute Lymphs (auto) 0.7 L (1.0-4.8) 10^3/ul Absolute Monos (auto) 0.4 (0-0.8) 10^3/ul Absolute Eos (auto) 0 (0-0.6) 10^3/ul Absolute Basos (auto) 0 (0-0.2) 10^3/ul Absolute Nucleated RBC 0 10^3/ul Nucleated RBC % 0 Sodium 139 (135-145) mmol/L Potassium 4.9 (3.5-5.0) mmol/L Chloride 103 (101-111) mmol/L Carbon Dioxide 32 (22-32) mmol/L Anion Gap 4 (2-11) mmol/L BUN 18 (6-24) mg/dL Creatinine 1.03 (0.67-1.17) mg/dL Est GFR ( Amer) 88.3 (>60) Est GFR (Non-Af Amer) 72.9 (>60) BUN/Creatinine Ratio 17.5 (8-20) Glucose 124 H (70-100) mg/dL Lactic Acid 1.1 (0.5-2.0) mmol/L Calcium 9.6 (8.6-10.3) mg/dL Total Bilirubin 1.70 H (0.2-1.0) mg/dL AST 21 (13-39) U/L ALT 26 (7-52) U/L Alkaline Phosphatase 98 (34-104) U/L Troponin I 0.00 (<0.04) ng/mL Total Protein 7.4 (6.4-8.9) g/dL Albumin 4.3 (3.2-5.2) g/dL Globulin 3.1 (2-4) g/dL Albumin/Globulin Ratio 1.4 (1-3) Result Diagrams: 11/08/18 13:13 11/08/18 13:13 Lab Statement: Any lab studies that have been ordered have been reviewed, and results considered in the medical decision making process. Chest Pain Course/Dx - Course Course Of Treatment: During the course of treatment, the patient is evaluated for one episode of nausea and vomiting yesterday and one episode of nausea vomiting today. He states he was concerned as he had some nausea with his last KS in 2003. He denies any CP or SOB. Last visit was 6 months ago with his roentgenology teacher and had a normal stress test. Labs obtained including a troponin which was 0.00. Chest x-ray shows no acute cardiopulmonary disease. EKG obtained which shows normal sinus rhythm. Discussed findings with patient. He states he has a f/u appt with cardiology soon. Patient is currently asymptomatic, however I have offered her Zofran and he accepts. I have also given him a prescription for Zofran. As labs, EKG and chest x-ray were all WNL and patient is asymptomatic, I believe he is safe at this time to be discharged home with close follow-up to cardiology. Patient voices understanding and is also agreeable to this plan. is also agreeable to plan. - Chest Pain Differential Diagnosis/HQI/PQRI: Other: - Nausea vomiting - Diagnoses Provider Diagnoses: Nausea and vomiting Discharge - Sign-Out/Discharge Documenting (check all that apply): Patient Departure Patient Received Moderate/Deep Sedation with Procedure: No - Discharge Plan Condition: Stable Disposition: HOME Prescriptions: Ondansetron ODT TAB* [Zofran 4 MG Odt TAB*] 4 mg PO Q6H PRN #12 tab.odt MDD 4 PRN Reason: Nausea Patient Education Materials: Acute Nausea and Vomiting (ED) Forms: *Work Release Referrals: Marco Antonio Chavez MD [Primary Care Provider] - Additional Instructions: As discussed, takes Zofran up to every 4 hours as needed for nausea Drink lots of fluids Rest If he develop any chest pain, shortness of breath or worsening symptoms, return to the ED immediately As discussed all your labs and EKG on today's visit were normal - Billing Disposition and Condition Condition: STABLE Disposition: Home
[2018-11-08 14:26] VITALS: BP 107/70
== END | disposition home or self-care (01) ==
LOC: ED 12:20
DX: R11.2 Nausea with vomiting, unspecified (principal); I25.10 Atherosclerotic heart disease of native coronary artery without angina pectoris; I10 Essential (primary) hypertension; Z98.84 Bariatric surgery status; Z87.891 Personal history of nicotine dependence
CPT/HCPCS: 36415; 71045; 80053; 83605; 84484; 85025; 93005; 99282; A9270-GY

== ENCOUNTER 2019-07-19 11:33 | Emergency (ER) | payer MEDICARE ==
--- OUTSIDE RECORDS SUMMARY | 2019-07-19 11:43 | XMS REPORT | Continuity of Care Document ---
:1955 External Reference #:[id number] Author Name Charles Mckinney N.P. (transmitted by agent of provider Mar Seymour) Address [address] [facility], [place] [address] Care Team Providers Name Role Phone Kay Castañeda MD - Internal Care Team Information [employer] [employer] [phone] Medicine Marco Antonio Chavez III, MD - Internal Care Team Information [facility] [facility] [address] [facility] [phone] Medicine [facility] - [place] Disorder Care Team Information [facility] [facility] [facility] Diagnostic Neptali Lundy MD - Dermatology Care Team Information [employer] [employer] Problems Active Problems Provider Date 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 Onset: 07/26/2011 Aortocoronary Bypass Postsurgical Martha Queen M.D. Onset: 2010 Status Hyperlipidemia Martha Queen M.D. Onset: 07/26/2011 Benign essential hypertension Martha Queen M.D. Onset: 07/26/2011 Amnesia Keith Curry M.D. Onset: 07/26/2011 Diplopia Keith Curry M.D. Onset: 07/26/2011 Gallbladder calculus with acute Keith Curry M.D. Onset: 07/26/2011 cholecystitis and no obstruction Supraventricular premature beats Martha Queen M.D. Onset: 2010 Premature beats Martha Queen M.D. Onset: 08/08/2011 Disorder of lumbar disc Keith Curry M.D. Onset: 08/21/2011 Obstructive sleep apnea syndrome Keith Curry M.D. Onset: 10/03/2011 Electrocardiogram abnormal Martha Queen M.D. Onset: 02/09/2012 Chronic ischemic heart disease Keith Curry M.D. Onset: 02/21/2012 Cervical disc disorder Keith Curry M.D. Onset: 02/21/2012 Mitral valve disorder Martha Queen M.D. Onset: 10/23/2012 Low back pain Marco nAtonio Chavez M.D. Onset: 04/08/2015 Brachial plexus disorder Hammad Avila M.D. Onset: 05/20/2015 Essential hypertension Martha Queen M.D. Onset: 07/22/2015 History of coronary artery bypass Martha Queen M.D. Onset: 2014 grafting Pure hypercholesterolemia Marco Antonio Chavez M.D. Onset: 10/11/2016 Dizziness and giddiness Wilmer Curtis M.D. Onset: 05/29/2019 Abnormal gait Wilmer Curtis M.D. Onset: 05/29/2019 Social History Type Date Description Comments Sex Unknown Tobacco Use Start: Unknown End: Former Cigarette Smoker x 28 yrs. Quit age Unknown 2 Packs Daily 42; began age 15 Smoking Status Reviewed: 07/07/19 Former Cigarette Smoker x 28 yrs. Quit age 2 Packs Daily 42; began age 15 ETOH Use Currently consumes alcohol ETOH Use Occasionally consumes alcohol Tobacco Use Start: Unknown End: Patient is a former Unknown smoker Recreational Drug Use Denies Drug Use Exercise Type/Frequency walks 2-3 times a week Allergies, Adverse Reactions, Alerts Description No Known Drug Allergies Medications Active Medications SIG Qnty Indications Ordering Provider Date Glucosamine 2 by mouth every 30caps Marco Antonio Chavez, 10/11/2016 Chondroitin 1500 day M.DRomel Complex 1500Com Capsules Atorvastatin Calcium take 1 tablet by 90tabs E78.4 Marco Antonio Chavez, 07/07 mouth at bedtime M.D. 40mg Tablets Lisinopril 1 by mouth every 90tabs Marco Antonio Chavez, 5mg Tablets day M.D. Aspir-81 1 po qd 100tabs Unknown 81mg Tablets Atenolol 1 by mouth every 90tabs Marco Antonio Chavez, 25mg Tablets day M.D. Multi Vitamin Daily 1 by mouth every Unknown day Tablets History Medications Tylenol With Codeine 2 tabs by mouth 42tabs Marco Antonio Chavez, 03/28/2019 - #3 up to 4 times a M.D. 05/28/2019 300-30mg Tablets day as needed Immunizations CPT Code Status Date Vaccine Lot # [id number] Given 10/24/2018 Influenza Virus Vaccine, Quadrivalent, Split, [id number] Preservative Free [id number] Given 10/11/2016 Influ Virus Vaccine, Quadrivalent, Split Virus, Im [id number] Fluzone not PF [id number] Given 07/09/2012 Fluzone Vaccine [id number] 02754 Given 07/26/2011 Pneumonia Vaccine [id number] 20321 Given 07/26/2011 Influenza Virus 3Yrs & Over Vital Signs Date Vital Result Comment 07/07/2019 1:07pm Height 68 inches 5'8" Weight 165.00 lb Heart Rate 67 /min BP Systolic 110 mmHg BP Diastolic 68 mmHg BMI (Body Mass Index) 25.1 kg/m2 05/29/2019 9:13am Height 68 inches 5'8" Weight 172.00 lb Heart Rate 68 /min BP Systolic 124 mmHg BP Diastolic 78 mmHg BMI (Body Mass Index) 26.1 kg/m2 Results Test Date Facility Test Result H/L Range Note Laboratory test 05/29/2019 [facility] C Reactive < 1.00 mg/L Normal <8.[address] [place] [address] [phone] Erythrocyte Sed Rate 9 mm/Hr Normal 0-19 TSH (Thyroid Stim Horm) 1.04 mcIU/mL Normal 0.34-5.60 Free T4 (Free Thyroxine) 0.98 ng/dL Normal 0.61-1.12 Protein 05/29/2019 [facility] Total 6.7 g/dL 6.3 - Electrophoresis [address] Protein(Pep) 7.9 [place] [address] [phone] Albumin 3.4 g/dL 3.4-4.7 Alpha-1 Globulin 0.3 g/dL 0.1-0.3 Alpha-2 Globulin 0.9 g/dL 0.6-1.0 Beta Globulin 1.1 g/dL 0.7-1.2 Gamma Globulin 1.0 g/dL 0.6-1.6 Albumin/Globulin Ratio 1.04 Impression See Comment 1 Vitamin B12 05/29/2019 [facility] Vitamin B12 302 pg/mL Normal 180-914 [address] [place] [address] [phone] Folic Acid (Folate) > 20.00 ng/mL >3.99 Laboratory 05/29/2019 [facility] Methylmalonic 0.23 <=0.40 3 test finding [address] Acid Mma nmol/[place] [address] [phone] Nuclear AB 05/29/2019 [facility] Nuclear Ab (Sheila) Positive Abnormal 4 (Sheila) By [facility] [address] [place] [address] by [facility], IgG 1:[address] [place] [address] [phone] Sheila Titer: 1:80 Sheila Pattern: Speckled 5 1 RESULT: No apparent monoclonal protein on serum electrophoresis. Test Performed by: [facility] [address] [place] [address] Glass Embosser: Isreal Tellez M.D. Ph.D.; CLIA# [id number] 2 Normal Range 180 to 914 Indeterminate Range 145 to 180 Deficient Range <145 3 ADDITIONAL INFORMATION This test was developed and its performance characteristics determined by [facility] in a manner consistent with CLIA requirements. This test has not been cleared or approved by the U.S. Food and Drug Administration. Test Performed by: [facility] - [address] [address] Glass Embosser: Isreal Tellez M.D. Ph.D.; CLIA# [id number] 4 REFERENCE VALUE <1:80 (Negative) 5 Test Performed by: [facility] [address] [place] [address] Glass Embosser: Isreal Tellez M.D. Ph.D.; IA# [id number] Procedures Date Code Description Status 03/26/2019 139614422 Diabetic Retinal Eye Exam Completed 01/14/2019 68314 Sleep Study Unattended,HRT Rate,Oxygen Sat,Resp Completed Effort/Airflow 05/13/2015 23358178 Colonoscopy Completed 07/25/2011 291024291 Diabetic Retinal Eye Exam Completed 09/24/2009 81265519 Colonoscopy Completed Medical Devices Description No Information Available Encounters Type Date Location Provider Dx Diagnosis Office Visit 04/09/2019 [facility] Caitlin G47.33 Obstructive sleep 2:00p [facility] apnea (adult) [facility] (pediatric) Office Visit 01/28/2019 [facility] And Caitlin G47.33 Obstructive sleep 9:00a [facility] apnea (adult) [facility] (pediatric) Office Visit 01/08/2019 Pulmonology And Aliza Cruz, R06.83 Snoring 7:00a [facility] G47.33 Obstructive sleep apnea (adult) (pediatric) Assessments Date Code Description Provider 07/07/2019 R42 Dizziness and giddiness Charles Mckinney N.P. 07/07/2019 R41.3 Other amnesia Charles Mckinney N.P. 07/07/2019 G47.33 Obstructive sleep apnea (adult) (pediatric) Charles Mckinney, N.P. 07/07/2019 R26.89 Other abnormalities of gait and mobility Charles Mckinney N.P. 07/07/2019 R26.81 Unsteadiness on feet Charles Mckinney N.P. 07/07/2019 R20.2 Paresthesia of skin Charles Mckinney N.P. 05/29/2019 R42 Dizziness and giddiness Wilmer Curtis M.D. 05/29/2019 R41.3 Other amnesia Wilmer Curtis M.D. 05/29/2019 G47.33 Obstructive sleep apnea (adult) (pediatric) Wilmer Curtis M.D. 05/29/2019 R26.89 Other abnormalities of gait and mobility Wilmer Curtis M.D. 05/29/2019 R26.81 Unsteadiness on feet Wilmer Curtis M.D. 05/29/2019 R53.82 Chronic fatigue, unspecified Wilmer Curtis M.D. 04/09/2019 G47.33 Obstructive sleep apnea (adult) (pediatric) Caitlin Ward NP 03/26/2019 R07.89 Other chest pain Marco Antonio Chavez M.D. 03/26/2019 R26.89 Other abnormalities of gait and mobility Marco Antonio Chavez M.D. 03/26/2019 L98.9 Disorder of the skin and subcutaneous Marco Antonio Chavez M.D. tissue, unspecified 01/28/2019 G47.33 Obstructive sleep apnea (adult) (pediatric) Caitlin Ward NP 01/14/2019 G47.33 Obstructive sleep apnea (adult) (pediatric) Aliza Cruz MD 01/08/2019 R06.83 Snoring Aliza Cruz MD 01/08/2019 G47.33 Obstructive sleep apnea (adult) (pediatric) Aliza Cruz MD Plan of Treatment Future Appointment(s):08/18/2019 3:00 pm - Charles Mckinney NАндрей at [facility]08/27/2019 2:00 pm - Martha Queen M.D. at [place]90/14/2019 - Charles Mckinney N.P.R42 Dizziness and yhyzqjxghN19.3 Other uyapqhxU15.33 Obstructive sleep apnea (adult) (pediatric) R26.89 Other abnormalities of gait and sfhyoabeB91.81 Unsteadiness on feetR20.2 Paresthesia of skinNew Orders:EMG w/Nerve Conduct Study, Upper, Ordered: EMG w/Nerve Conduct Study, Lower, Ordered: 07/07/19Referral:Jas Haskins MD , RheumatologyFollow up:6 weeks Functional Status Description No Information Available Mental Status Description No Information Available Referrals Refer to Reason for Referral Status Appt Date Jas Haskins MD Created [address] [place] [address] [place] [address] [phone] Jas Haskins MD Closed [address] [place], [place] [id number] [phone] Neptali Lundy MD assorted skin lumps, blemishes; general skin check Sent [facility], [address] [place], [place] [address] [phone]
[2019-07-19] MEDS ORDERED: Tetan/Diph/Pertus SYR(Tdap)* 0.5 ML SYR(BOOSTRIX) use SYR contains LATEX IM ONE (11:44)
[2019-07-19] MEDS ORDERED: oxyCODONE/Acetamin 5/325 MG* TAB PO ONE (11:50)
--- NOTE | 2019-07-19 11:57 | ED ---
Laceration/Wound HPI - HPI Summary HPI Summary: The patient is a 64 y/o R handed M presenting to [facility] accompanied by with a chief complaint of lacerations on the first and second digits of the left hand onset immediately prior to arrival. He reports he was using a table saw this morning when he cut his fingers. He is unable to extend the second finger at the distal joint, and there is active bleeding from both lacerations. Currently, his symptoms are rated 7/10 in severity. Movement aggravates the pain. He notes that he takes ASA 80mg for cardiac history but does not take any other anticoagulants. PMHx: angioplasty, CAD, HTN, cardiac bypass, mitral valve repairs. Former smoker, occasional EtOH, marijuana use. Medications reviewed. Allergies noted. - History of Current Complaint Stated Complaint: FINGER LAC PER PT Time Seen by Provider: 07/19/19 11:43 Hx Obtained From: Patient Mechanism of Injury: Sharp/Blunt Trauma - cut on table saw Onset/Duration: Sudden Onset, Still Present Aggravating: Movement Alleviating: Nothing Timing: Constant Onset Severity: Severe Current Severity: Severe Pain Intensity: 7 Pain Scale Used: 0-10 Numeric Associated Signs & Symptoms: Pain Related Hx: Dominant Hand (Right), Recent Trauma - Allergy/Home Medications Allergies/Adverse Reactions: Allergies Allergy/AdvReac Type Severity Reaction Status Date / Time No Known Allergies Allergy Verified 11/27/18 14:53 PMH/Surg Hx/FS Hx/Imm Hx Endocrine/Hematology History: Denies: Hx Diabetes Cardiovascular History: Reports: Hx Angioplasty, Hx Coronary Artery Disease, Hx Hypertension Denies: Hx Pacemaker/ICD History: Denies: Hx Renal Disease Musculoskeletal History: Reports: Hx Back Problems Sensory History: Denies: Hx Hearing Aid Psychiatric History: Denies: Hx Panic Disorder - Surgical History Surgical History: Yes Surgery Procedure, Year, and Place: CARDIAC BYPASS MAY 2003 - BYPASSES & REPAIR OF MITRAL VALVE; TONSILS 1965 Infectious Disease History: No Infectious Disease History: Denies: Traveled Outside the [place] in Last 30 Days - Family History Known Family History: Negative: Cardiac Disease, Hypertension, Diabetes - Social History Alcohol Use: Occasionally Hx Substance Use: Yes Substance Use Type: Reports: Marijuana Substance Use Comment - Amount & Last Used: 07/23/14 Hx Tobacco Use: Yes Smoking Status (MU): Former Smoker Review of Systems Positive: Other - unable to extend second finger on left hand Positive: Other - lacerations to the first and second digits on left hand, active bleeding All Other Systems Reviewed And Are Negative: Yes Physical Exam - Summary Physical Exam Summary: Constitutional: Well-developed, Well-nourished, Alert. (-) Distressed Skin: Warm, Dry HENT: Normocephalic; Atraumatic Eyes: Conjunctiva normal Neck: Musculoskeletal ROM normal neck. (-) JVD, (-) Stridor, (-) Nuchal rigidity Cardio: Rhythm regular, rate normal, Heart sounds normal; Intact distal pulses; Radial pulses are 2+ and symmetric. (-) Murmur Pulmonary/Chest wall: Effort normal. (-) Respiratory distress, (-) Wheezes, (-) Rales Abd: Soft, (-) tenderness, (-) Distension, (-) Guarding, (-) Rebound Musculoskeletal: 2cm laceration to the left thumb on the palmar aspect, 2cm laceration to the dorsal aspect of the second left digit, (-) Edema Hand PE Motor: unable to extended DIP joint of 2nd finger Opposition of thumb and first finger intact Able to cross first and second finger Able to extend thumb Able to flex and extend wrist Able to spread fingers Sensory: Sensation intact in 1st, 2nd, and 5th digits Pulse: 2+ radial pulse intact. Brisk cap refill. Neuro: Alert, Oriented x3 Psych: Mood and affect Normal Triage Information Reviewed: Yes Vital Signs On Initial Exam: Initial Vitals Temp Pulse Resp BP Pulse Ox 97.1 F 68 17 133/74 98 07/19/19 11:35 07/19/19 11:35 07/19/19 11:35 07/19/19 11:35 07/19/19 11:35 Vital Signs Reviewed: Yes Procedures - Sedation Patient Received Moderate/Deep Sedation with Procedure: No - Splinting Left 2nd Digit Location: left second digit Splint: extensor splint Pre-Proc Neuro Vasc Exam: abnormal - unable to extend DIP Post-Proc Neuro Vasc Exam: unchanged from pre-exam Splint Applied by Provider: Heather Kidd T - Laceration/Wound Repair 1 Location: Other - left thumb Description: Irregular Anesthesia: Digital, 1.0%, Lido - 5ccs Length, Depth and Shape: 2cm Laceration/Wound Explored: no foreign body removed - irrigated with tap water Closure: Single Layer Suture Type: Prolene - 5-0 Number of Sutures: 7 2 Location: Other - left second digit Description: Irregular Anesthesia: Digital, 1.0%, Lido - 5ccs Length, Depth and Shape: 2cm Laceration/Wound Explored: no foreign body removed - irrigated with tap water Closure: Single Layer Suture Type: Prolene - 5-0 Number of Sutures: 2 Diagnostics - Vital Signs Vital Signs Temp Pulse Resp BP Pulse Ox 07/19/19 11:35 97.1 F 68 17 133/74 98 - Laboratory Lab Statement: Any lab studies that have been ordered have been reviewed, and results considered in the medical decision making process. - Radiology Left Hand XR Radiology Interpretation Completed By: Radiologist Summary of Radiographic Findings: Impression: Soft tissue injury, no fracture is seen. ED physician has reviewed this report. Re-Evaluation - Re-Evaluation First Eval Re-Evaluation Time: 13:15 Change: Improved Comment: Performed laceration repair. Bleeding controlled. Sutures in place and splinted second digit. We discussed plan for discharge. Laceration Repair Course/Dx - Course Course Of Treatment: 64 y/o R hand dominant male p/w lac to 1st and 2 digit. Concern for extensor tendon laceration of 2nd DIP. Tetanus updated. Lacs repaired, left 2nd digit loosely approximated. placed in extensor splint. - Clinical Impression Provider Diagnoses: Laceration of index finger, Laceration of thumb, Injury of extensor tendon of left hand - Physician Notifications Discussed Care Of Patient With: Antonia Oliveira - orthopedics Time Discussed With Above Provider: 12:20 Instructed by Provider To: Other - Dr. Oliveira recommends dressing and splinting the finger, and Dr. Black will see the patient in office on 07/21/19. Discharge ED - Sign-Out/Discharge Documenting (check all that apply): Patient Departure - Patient will be discharged home. - Discharge Plan Condition: Stable Disposition: HOME Patient Education Materials: Finger Laceration (ED), Tendon Laceration (ED) Referrals: Marco Antonio Chavez MD [Primary Care Provider] - Caitlin Black MD [Medical Doctor] - 07/21/19 Additional Instructions: You were seen in the emergency department for hand laceration. Your XR did not show any fractures but there was concern for a tendon injury. Please follow up with orthopedics, You received sutures (stitches) today. These need to be removed in 7-10 days. Please keep the area dry and clean. Return to the emergency department or seek medical attention for drainage, redness to the area, increased pain around the laceration. Once the wound is healed, you can apply sunscreen to help with scar prevention. Please follow up with your primary care doctor in the next 2-3 days and return to the emergency department for worsening or concerning symptoms. It was a pleasure taking care of you today. - Billing Disposition and Condition Condition: STABLE Disposition: Home - Attestation Statements Document Initiated by Nito: Yes Documenting Scribe: Alicia Sarmiento Provider For Whom Nito is Documenting (Include Credential): Dr. Heather Kidd MD Scribe Attestation: Alicia Rizvi, scribed for Dr. Heather Kidd MD on 07/19/19 at 1351. Scribe Documentation Reviewed: Yes Provider Attestation: The documentation as recorded by the Alicia mcdaniel accurately reflects the service I personally performed and the decisions made by me, Dr. Heather Kidd MD Status of Scrsoledad Document: Viewed
[2019-07-19 13:49] VITALS: BP 132/70
== END 2019-07-19 13:45 | disposition home or self-care (01) ==
LOC: ED 11:33
DX: S61.012A Laceration without foreign body of left thumb without damage to nail, initial encounter (principal); S61.211A Laceration without foreign body of left index finger without damage to nail, initial encounter; S66.309A Unspecified injury of extensor muscle, fascia and tendon of unspecified finger at wrist and hand level, initial encounter; Z23 Encounter for immunization; W31.2XXA Contact with powered woodworking and forming machines, initial encounter; Y92.9 Unspecified place or not applicable; I25.10 Atherosclerotic heart disease of native coronary artery without angina pectoris; I10 Essential (primary) hypertension; Z95.1 Presence of aortocoronary bypass graft; Z87.891 Personal history of nicotine dependence; Z79.82 Long term (current) use of aspirin
CPT/HCPCS: 12002; 90471; 90715; 99282; A9270-GY

== ENCOUNTER 2024-05-27 15:17 | Observation (INO) ==
[2024-05-27 15:39] LABS: ABS Lymphocytes 0.9 10^3/uL (1.0-4.8); ABS Monocytes 0.4 10^3/uL (0.0-1.1); Eosinophil % 0.4 %; Hematocrit 39.5 % (38-53); Lymphocyte % 20.5 %; Mean Corpuscular Hemoglobin 29.2 pg (27-33); Mean Corpuscular Volume 88.4 fL (80-97); Mean Platelet Volume 7.7 fL (7.5-11.2); Nucleated Red Blood Cells % 0.1 %/100WBC (0.0-0.8); Platelet Count 216 10^3/uL (150-450); Red Blood Count 4.46 10^6/uL (4.06-5.63); White Blood Count 4.3 10^3/uL (3.6-10.2)
[2024-05-27 15:52] LABS: INR 1.12 (0.85-1.14)
[2024-05-27 16:23] LABS: Albumin 4.3 g/dL (3.2-5.2); Albumin/Globulin Ratio 1.7 (1-3); Calcium 9.9 mg/dL (8.6-10.3); Creatinine, Serum 1.01 mg/dL (0.67-1.17); Globulin 2.6 g/dL (2-4); Total Bilirubin 0.7 mg/dL (0.2-1.0); Total Protein 6.9 g/dL (6.4-8.9); eGFR CKD-EPI 80.5 (>60)
[2024-05-27 17:17] LABS: High Sensitivity Troponin 1 Hr 59 pg/mL (<20)
[2024-05-27] MEDS: Iohexol 350 (CONTRAST) 500 ML MDV IV ONE (17:30)
[2024-05-27] MEDS ORDERED: Heparin 5000 UNITS/ML 1 mL VIAL IV SCH (19:00)
[2024-05-27] MEDS: Heparin DRIP 25,000 UNITS BAG 25,000 UNITS/250 ML BAG IV SCH (20:58)
[2024-05-28] MEDS: Enoxaparin 40 MG/0.4 ML SYR SUBCUT SCH (09:25)
[2024-05-28] MEDS: CMCS: Nebivolol 2.5 mg TAB (NF) PO SCH (09:25)
[2024-05-28] MEDS: Aspirin EC 81 mg TAB.EC (enteric coated) PO SCH (09:25)
[2024-05-28 09:57] LABS: ABS Eosinophils 0.1 10^3/uL (0.0-0.5); ABS Lymphocytes 0.6 10^3/uL (1.0-4.8); ABS Monocytes 0.3 10^3/uL (0.0-1.1); ABS Neutrophils 2.7 10^3/uL (1.5-7.6); Eosinophil % 1.6 %; Hematocrit 37.3 % (38-53); Hemoglobin 12.3 g/dL (13.2-16.3); Mean Corpuscular Hemoglobin 29.3 pg (27-33); Mean Corpuscular Hgb Conc 32.9 g/dL (31-36); Mean Platelet Volume 7.9 fL (7.5-11.2); Nucleated Red Blood Cells % 0.1 %/100WBC (0.0-0.8); Platelet Count 182 10^3/uL (150-450); Red Blood Count 4.19 10^6/uL (4.06-5.63); Red Cell Distribution Width 14.5 % (12-17); White Blood Count 3.7 10^3/uL (3.6-10.2)
[2024-05-28 10:17] LABS: Calcium 8.6 mg/dL (8.6-10.3); Creatinine, Serum 0.96 mg/dL (0.67-1.17); HDL Cholesterol 34.5 mg/dL; Magnesium 1.9 mg/dL (1.9-2.7); eGFR CKD-EPI 85.6 (>60)
[2024-05-28] MEDS ORDERED: Regadenoson 0.4 MG/5 ML SYRINGE ONE (12:25)
[2024-05-28] MEDS ORDERED: Aminophylline 25 MG/ML VIAL ONE (12:25)
[2024-05-28 14:30] VITALS: BP 131/86
[2024-05-28] MEDS: Sulfur Hexaflouride MICROSPHR 25 MG VIAL IV PRN (14:56)
== END 2024-05-28 18:05 | disposition home or self-care (01) ==
LOC: EDHOLD 15:17 → ED 15:17 → MEDTELE 22:23
PROVIDERS: ADMIT Internal Medicine; ATTEND Internal Medicine